=== PATIENT | female | born 1995 | race African-American/Black ===

== ENCOUNTER 2024-10-01 11:46 | Inpatient (IN) | payer OTHER, SELFPAY ==
[2024-10-01] VITALS (116 sets, daily range): BP systolic 64–133; BP diastolic 44–107; PULSE 32–158; RESP 18; TEMP 36.3–37.2; O2SAT 75–100; BMI 46.2
--- NOTE | ~2024-10-01 | US_ITS ---
EXAM EXAMINATION: US OB limited DATE: 10/01/2024 13:06 CDT INDICATION: No heart tones detected COMPARISON: None TECHNIQUE: Real-time transabdominal obstetric ultrasound. FINDINGS: The placenta is grossly enlarged and heterogeneous consistent with mixed blood products of different ages. No cardiac activity is identified on the submitted images. IMPRESSION: Grossly enlarged and heterogeneous placenta without cardiac activity on the submitted static or cine images. Reviewed, dictated and finalized at location A. IMPRESSION: Grossly enlarged and heterogeneous placenta without cardiac activity on t he submitted static or cine images.
--- OUTSIDE RECORDS SUMMARY | 2024-10-01 12:05 | XMS_ITS | Encounter Summary ---
Author Organization [facility] Address [address] [facility] [place] [address] Care Team Providers Care Vp Digital Marketing Name Role Phone Ethan Petty PA-C Primary Care Provider Reason for Visit * Reason Onset Date Comments MEDICATION REFILL 08/01/2022 Encounter Details Date Type Department Care Team (Late st Contact Info) Description 08/01/2022 Refill [facility] [address] [place], [place] [id number] Ethan Petty PA-C [address] [place] [id number] MEDICATION REFILL Social History Tobacco Use Types Packs/Day Years Used Date Smoking Tobacco: Never Smokeless Tobacco: Never Alcohol Use Standard Drinks/Week Comments Yes 0 (1 standard drink = 0.6 oz pur e alcohol) AUDIT-C Answer Date Recorded Q1: How often do you have a drink containing alc ohol? 2-3 times a week 08/17/2020 Q2: How many drinks containi ng alcohol do you have on a typical day when you are drinking? 1 or 2 08/17/2020 Q3: How often do you have si x or more drinks on one occasion? Never 08/17/2020 PHQ-2 Answer Date Recorded PHQ2 TOTAL SCORE 0 08/17/2020 Comments No Sex and Gender Information Value Date Recorded Sex Assigned at Not on file Legal Sex Female 5:39 AM [place] Gender Identity Not on file Sexual Orientation Not on file documented as of this encounter Functional Status * Is person deaf or have serious hearing difficulty? Answer Date of Assessment Author No 03/03/2019 8:22 AM Laura Stratton RN * Is person blind or have serious difficulty seeing? Answer Date of Assessment Author No 03/03/2019 8:22 AM Laura Stratton RN * Does person have serious difficulty walking/climbing stairs? Answer Date of Assessment Author No 03/03/2019 8:22 AM Laura Stratton RN * Does person have difficulty dressing/bathing? Answer Date of Assessment Author No 03/03/2019 8:22 AM Laura Stratton RN * Does person have difficulty doing errands alone? Answer Date of Assessment Author No 03/03/2019 8:22 AM Laura Stratton RN documented as of this encounter Mental Status * Does person have difficulty concentrating/remembering/making decisions? Answer Entry Date Author No 03/03/2019 8:22 AM Laura Stratton RN documented in this encounter Miscellaneous Notes * Telephone Encounter - Guera Oviedo MA - 08/05/2022 11:02 AM CDT Refill Request Dora Beauchamp RACHAEL: 03/18/2021 NOV due: none NOV scheduled: Visit date not found LRF: 07/30/2022 Qty Disp: 08/01/2022 # of refills: 30 Allergies: No Known Allergies Pended Medication Order: Requested Prescriptions Pending Prescriptions Disp Refills ??? acyclovir (Zovirax) 400 MG tablet 30 tablet 0 Sig: Take 1 (one) tablet by mouth 2 times daily for 14 days documented in this encounter Plan of Treatment Upcoming Encounters Date Type Department Care Team (Late st Contact Info) Description 10/05/2024 9:00 AM CDT Hospital Encounter [facility] [address] [place] [address] oDnny Mcadams MD [address] [facility] [address] [place] [address] 10/19/2024 10:30 AM CDT Appointment [facility] [address] [place] [address] 10/19/2024 11:15 AM CDT Appointment [facility] [address] [place] [address] 10/26/2024 10:30 AM CDT Appointment [facility] [address] [place] [address] 10/26/2024 11:15 AM CDT Appointment [facility] [address] [place] [address] 11/02/2024 10:30 AM CDT Appointment [facility] [address] [place] [address] 11/02/2024 11:15 AM CDT Appointment [facility] [address] [place] [address] 11/09/2024 9:00 AM CDT Appointment [facility] [address] [place] [address] 11/09/2024 9:45 AM CDT Appointment [facility] [address] [place] [address] 11/16/2024 9:00 AM CDT Appointment [facility] [address] [place] [address] 11/16/2024 9:45 AM CDT Appointment [facility] [address] [place] [address] documented as of this encounter Visit Diagnoses Diagnosis H/O cold sores Personal history of other infectious and parasitic disease Cervical insufficiency in , antepartum (HCC)- Primary Other congenital or acquired abnormality of cervix, antepartum condition or complication Previous delivery, antepartum condition or complication (HCC) Previous delivery, antepartum condition or complication Encounter for maternal care for suspected poor growth in [place] in second trimester ([facility]) growth restriction antepartum ([facility]) History of cerclage, currently (HCC) with other poor obstetric history 34 weeks gestation of (HCC) state, incidental documented in this encounter Care Teams Vp Digital Marketing Relationship Specialty Start Date End Date Ethan Petty PA-C [address] [phone] PCP - General 08/02/20 documented as of this encounter
--- OUTSIDE RECORDS SUMMARY | 2024-10-01 12:05 | XMS_ITS | Referral Summary ---
Author Organization [place] [id number] Address [address] [place] [address] Care Team Providers Care Double End Tenoner Setter Name Role Phone No, Physician Primary Care Provider [phone] Allergies No known active allergies Medications acyclovir (ZOVIRAX) 400 mg tablet Take 1 tablet (400 mg total) by mouth 2 (two) times a day Active ferrous sulfate 325 mg (65 mg of elemental iron) tablet Active [id number] 30 mg iron-1mg -200 mg capsule Take by mouth daily Active ELDERBERRY FRUIT ORAL Take by mouth Active progesterone (PROMETRIUM) 100 mg capsule Take 1 capsule (100 mg total) by mouth daily Active Active Problems Problem Noted Date Diagnosed Date Marijuana user 04/20/2024 Overview (04/25/2024): +UDS on NOB labs, cessation reviewed. 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 Never 04/27/2024 Q2: How many drinks containi ng alcohol do you have on a typical day when you are drinking? Patient does not drink Q3: How often do you have si x or more drinks on one occasion? Never 04/27/2024 Personal Safety Answer Date Recorded Have you ever been in or are you currently in a harmful physical or emotional relationship or is someone making you feel afraid or unsafe? Denies 04/27/2024 Comments Unknown Sex and Gender Information Value Date Recorded Sex Assigned at Not on file Legal Sex Female 11:34 AM [employer] [place] Gender Identity Not on file Sexual Orientation Not on file Last Filed Vital Signs Vital Sign Reading Time Taken Comments Blood Pressure 116/84 04/27/2024 2:15 PM [employer] Pulse 75 04/27/2024 2:15 PM [employer] Temperature 36.4 C (97.5 F) 04/27/2024 10:55 AM [employer] Respiratory Rate 16 04/27/2024 2:15 PM [employer] Oxygen Saturation 100% 04/27/2024 2:15 PM [employer] Inhaled Oxygen Concentration - - Weight 99.9 kg (220 lb 3.2 oz) 04/27/2024 7:18 A M [employer] Height 154.9 cm (5' 1) 04/27/2024 7:18 AM [employer] [place] Body Mass Index 41.61 04/27/2024 7:18 AM [employer] [place] Plan of Treatment Not on file Insurance [facility] Advance Directives For more information, please contact: [phone] * Full Code (Latest Code Status on File) Date Activated Date Inactivated Comments 04/27/2024 10:07 AM 04/27/2024 9:25 PM Care Teams Double End Tenoner Setter Relationship Specialty Start Date End Date No, Physician PCP - General 07/14/24
--- OUTSIDE RECORDS SUMMARY | 2024-10-01 12:05 | XMS_ITS | Data Portability ---
Author Organization [employer] , [facility] Address [address] [place] [address] Assessment No assessment recorded. Plan of Treatment Reminders Order Date Submit Date Provider Last Modified By Organization Details Last Modified Time Details Appointments OB RETURN EST 2024 09:30A M MEGHAN HAGER, DO Not available Not available Not available Lab urinalysi s, dipstick 2024 025 [email or web address] [facility], [address] [place] [address], [phone], 09/23/2024 14:06:42 urinalysi s, dipstick 2024 025 [email or web address] [facility], [address] [place] [address], [address], 09/08/2024 10:46:13 culture, urine 2024 025 [facility], [address] [place], [address], 09/10/2024 02:17:47 obstetric screen, serum or blood 2024 025 [facility] [place], [address] [place], [address], 08/19/2024 13:33:17 CBC w/ auto diff 2024 025 [facility], [address] [place], [address], 08/19/2024 12:26:57 glucose tolerance test, post-50G, 1-hour 2024 025 [facility] [place], [address] [place], [address], 08/19/2024 11:25:30 bacterial vaginosis + vaginitis panel, vaginal 2024 025 [facility] [place], [address] [place], [address], 08/08/2024 14:51:21 urinalysi s, dipstick [address], [address] [facility], [place], [address], 08/04/2024 16:15:52 culture, urine 2024 025 [facility], [address] [place], [address], 08/07/2024 02:10:55 culture, urine 2024 025 [facility], [address] [place], [address], 07/05/2024 22:09:49 Referral maternal & medicine referral - Please co-manage patient IUGR 4% normal cord dopplers at 27.0 wks gestation , cerclage in place for hx of cervical incompete nce 2024 025 [facility], [address] [facility], [address], [place], [address], 09/02/2024 04:09:38 Procedures None recorded. Surgeries None recorded. Imaging US, obstetric , follow-up 2024 025 NED Not available 08/04/2024 16:59:45 US, obstetric , 2nd or 3rd trimester 2024 025 NED Not available 07/04/2024 13:09:33 US, obstetric , transvagi nal 2024 025 [email or web address] Not available 07/07/2024 11:36:16 Medication Orders Macrobid 100 mg capsule 2024 025 [id number], [address], [place], [place], [id number], 09/25/2024 05:01:57 metronida zole 500 mg tablet 2024 025 [facility] #[id number], [address], [place], [place], [id number], 08/18/2024 05:00:47 Macrobid 100 mg capsule 2024 025 [facility] #44607, [address], [place], [place], [id number], 09/25/2024 05:01:57 Adult Low Dose Aspirin 81 mg tablet,de layed release 2024 025 [facility][id number], [address], [place], [place], [id number], 07/04/2024 16:45:47 Patient TargetsNo targets recorded. Patient Instructions Encounter Date Encounter Id Patient Instructions Last Modified By Organization Details Last Modified Time 08/18/2024 [id number] learning about screening for gestational diabetes [email or web address] Not available 08/18/2024 15:15:46 Reason for Referral Maternal & Medicine Re ferral for growth restriction Please co-manage patient IUGR 4% normal cord dopplers at 27.0 wks gestation, cerclage in place for hx of cervical incompetence Referring Physician: Isatu Bello, [employer], Encounter Date: 08/04/2024 Results Created Date Observation Date Name Description Value Unit Range Abnormal Flag Note LastModifiedBy Organization Detail LastModifiedTime 07/05/1907/05/2024 CULTU RE, URINE , ROUTI NE culture, urine, routine SEE NOTE CULTU RE, URINE , ROUTI NE Micro Numbe r: [id number] Test Statu s: Final Speci men Sourc e: Urine Speci men Quali ty: Adequ ate Resul t: No Growt h Not Available [facility] [address] [place], [address], 07/05/2024 22:09:49 07/06/19 25 07/06/2024 (50G) 1HR - GLUCO SE DACIA ANCE TEST, GESTA HOLLY L SCREE N glucose (50g) 1 hour 77 mg/dL <135 normal Not Available [facility] [place] [address] [place], [address], 07/06/2024 10:43:40 08/05/19 25 08/07/2024 CULTU RE, URINE , ROUTI NE culture, urine, routine SEE NOTE abnormal CULTU RE, URINE , ROUTI NE Micro Numbe r: [id number] Test Statu s: Final Speci men Sourc e: Urine Speci men Quali ty: Adequ ate Resul t: 10,00 0-49, 000 CFU/m L of Coagu lase negat jermaine staph yloco ccus, not S. sapro phyti cus May repre sent colon izers from exter nal and inter nal genit mary. No furth er testi ng (incl uding susce ptibi lity) will be perfo rmed. Great er than 100,0 00 CFU/m L of Enter ococc us speci es Enter ococc us sp. ----- ----- ----- - INT MATEUSZ AMPIC ILLIN S <=2 NITRO FURAN TOIN S <=16 VANCO MYCIN S 2 S = Susce ptibl e I = Inter media te R = Resis tant NS = Not susce ptibl e SDD = Susce ptibl e Dose Depen dent * = Not Teste d NR = Not Repor gina NN = See Thera py Comme nts Not Available [facility] [address] [place], [address], 08/07/2024 21:38:25 08/05/19 25 08/08/2024 VAGIN ITIS PLUS STD PANEL bacterial vaginosis BV POS negati ve abnormal Not Available [address], [address], 08/08/2024 14:51:21 08/05/19 25 08/08/2024 VAGIN ITIS PLUS STD PANEL shonda species C. spp neg negati ve normal Not Available [address], [address], 08/08/2024 14:51:21 08/05/19 25 08/08/2024 VAGIN ITIS PLUS STD PANEL shonda glabrata C. gla neg negati ve normal Not Available [address], [address], 08/08/2024 14:51:21 08/05/19 25 08/08/2024 VAGIN ITIS PLUS STD PANEL trichomonas vaginalis CV/TV TRICH neg negati ve normal Not Available [address], [address], 08/08/2024 14:51:21 08/05/19 25 08/08/2024 VAGIN ITIS PLUS STD PANEL chlamydia trachomatis CT neg negati ve normal This repor t is inten ded for us in clini aguila monit oring and manag ement [facility]. It is not inten ded for use in medic al-le gal appli catio n. Not Available [address], [address], 08/08/2024 14:51:21 08/05/19 25 08/08/2024 VAGIN ITIS PLUS STD PANEL neisseria gonorrhoeae GC neg negati ve normal This repor t is inten ded for us in clini aguila monit oring and manag ement of [facility] nts. It is not inten ded for use in medic al-le gal appli catio n. Not Available [address], [address], 08/08/2024 14:51:21 08/05/19 25 08/04/2024 urina lysis , dipst ick Leukocytes Large Not Available [address], [place], [address], 08/04/2024 15:44:52 08/05/19 25 08/04/2024 urina lysis , dipst ick Nitrite negati ve Not Available [address], [place], [address], 08/04/2024 15:44:52 08/05/19 25 08/04/2024 urina lysis , dipst ick Urobilinogen 1 Not Available [address], [place], [address], 08/04/2024 15:44:52 08/05/19 25 08/04/2024 urina lysis , dipst ick Protein Trace Not Available [address], [place], [address], 08/04/2024 15:44:52 08/05/19 25 08/04/2024 urina lysis , dipst ick pH 6.0 Not Available [address], [place], [address], 08/04/2024 15:44:52 08/05/19 25 08/04/2024 urina lysis , dipst ick Blood Modera te Not Available [address], [place], [address], 08/04/2024 15:44:52 08/05/19 25 08/04/2024 urina lysis , dipst ick Specific [place] 1.010 Not Available [address], [place], [address], 08/04/2024 15:44:52 08/05/19 25 08/04/2024 urina lysis , dipst ick Ketone Trace Not Available [address], [place], [address], 08/04/2024 15:44:52 08/05/19 25 08/04/2024 urina lysis , dipst ick Bilirubin Negati ve Not Available [address], [place], [address], 08/04/2024 15:44:52 08/05/19 25 08/04/2024 urina lysis , dipst ick Glucose Negati ve Not Available [address], [place], [address], 08/04/2024 15:44:52 08/05/19 25 08/04/2024 urina lysis , dipst ick Appearance Cloudy Not Available [address], [place], [address], 08/04/2024 15:44:52 08/05/19 25 08/04/2024 urina lysis , dipst ick Color Yellow Not Available [address], [address], 08/04/2024 15:44:52 08/19/19 25 08/19/2024 (50G) 1HR - GLUCO SE DACIA ANCE TEST, GESTA HOLLY L SCREE N glucose (50g) 1 hour 109 mg/dL <135 normal Not Available [facility] [address] [place] [address], [address], 08/19/2024 11:25:30 08/19/19 25 08/19/2024 CBC (INCL UDES DIFF/ PLT) WBC 8.7 thous and/u L 4.0 - 9.8 normal Not Available [facility] [address], [place], [address], 08/19/2024 12:26:56 08/19/1908/19/2024 CBC (INCL UDES DIFF/ PLT) RBC 3.6 magda on/uL 3.9 - 4.9 low Not Available [address], [address], 08/19/2024 12:26:56 08/19/19 25 08/19/2024 CBC (INCL UDES DIFF/ PLT) hemoglobin 11.4 g/dL 11.8 - 14.8 low Not Available [address], [address], 08/19/2024 12:26:56 08/19/19 25 08/19/2024 CBC (INCL UDES DIFF/ PLT) hematocrit 33.7 % 35.5 - 44.0 low Not Available [address], [address], 08/19/2024 12:26:56 08/19/19 25 08/19/2024 CBC (INCL UDES DIFF/ PLT) MCV 94.4 fL 82.0 - 99.0 normal Not Available [address], [address], 08/19/2024 12:26:56 08/19/19 25 08/19/2024 CBC (INCL UDES DIFF/ PLT) MCH 31.9 pg 27.2 - 32.6 normal Not Available [address], [address], 08/19/2024 12:26:56 08/19/19 25 08/19/2024 CBC (INCL UDES DIFF/ PLT) MCHC 33.8 g/dL 31.5 - 35.5 normal Not Available [address], [address], 08/19/2024 12:26:56 08/19/19 25 08/19/2024 CBC (INCL UDES DIFF/ PLT) RDW-CV 12.0 % 11.5 - 14.5 normal Not Available [address], [address], 08/19/2024 12:26:56 08/19/1908/19/2024 CBC (INCL UDES DIFF/ PLT) platelet 212 thous and/u L 140 - 350 normal Not Available [address], [address], 08/19/2024 12:26:56 08/19/19 25 08/19/2024 CBC (INCL UDES DIFF/ PLT) MPV 10.6 fL 9.3 - 12.4 normal Not Available [address], [address], 08/19/2024 12:26:56 08/19/19 25 08/19/2024 CBC (INCL UDES DIFF/ PLT) absolute neutrophil 5.87 thous and/u L 1.90 - 7.00 normal Not Available [address], [address], 08/19/2024 12:26:56 08/19/1908/19/2024 CBC (INCL UDES DIFF/ PLT) absolute lymphocyte 1.99 thous and/u L 0.70 - 4.50 normal Not Available [address], [address], 08/19/2024 12:26:56 08/19/1908/19/2024 CBC (INCL UDES DIFF/ PLT) absolute monocyte 0.57 thous and/u L 0.10 - 1.30 normal Not Available [address], [address], 08/19/2024 12:26:56 08/19/1908/19/2024 CBC (INCL UDES DIFF/ PLT) absolute eosinophil 0.16 thous and/u L <0.70 normal Not Available [address], [address], 08/19/2024 12:26:56 08/19/19 25 08/19/2024 CBC (INCL UDES DIFF/ PLT) absolute basophil 0.05 thous and/u L <0.20 normal Not Available [address], [address], 08/19/2024 12:26:56 08/19/19 25 08/19/2024 CBC (INCL UDES DIFF/ PLT) absolute immature granulocyte 0.02 thous and/u L <0.03 normal Not Available [address], [address], 08/19/2024 12:26:56 08/19/19 25 08/19/2024 OB 28W (SYPH HIV 1/2 Ag/Ab Non-Re active non-re active normal Not Available [address], [address], 08/19/2024 13:33:17 08/19/19 25 08/19/2024 OB 28W (SYPH syphilis Ab Non-Re active non-re active normal Not Available [address], [address], 08/19/2024 13:33:17 09/09/19 25 09/10/2024 CULTU RE, URINE , ROUTI NE culture, urine, routine SEE NOTE CULTU RE, URINE , ROUTI NE Micro Numbe r: [id number] Test Statu s: Final Speci men Sourc e: Urine Speci men Quali ty: Adequ ate Resul t: Mixed genit al corrie isola gina. These super ficia l bacte óscar are not indic ative of a urina ry tract infec tion. No furth er organ ism ident ifica tion is warra nted on this speci men. If clini geraldine indic ated, recol lect clean -catc h, mid-s tream urine and trans gio immed iatel y to Urine Cultu re Trans port Tube. Not Available [facility] [address] [place], [address], 09/10/2024 02:17:47 09/09/19 25 09/08/2024 urina lysis , dipst ick Leukocytes Modera te Not Available [address], [place], [address], 09/08/2024 10:01:12 09/09/19 25 09/08/2024 urina lysis , dipst ick Nitrite negati ve Not Available [address], [place], [address], 09/08/2024 10:01:12 09/09/1909/08/2024 urina lysis , dipst ick Urobilinogen .2 Not Available [address], [place], [address], 09/08/2024 10:01:12 09/09/19 25 09/08/2024 urina lysis , dipst ick Protein Trace Not Available [address], [place], [address], 09/08/2024 10:01:12 09/09/19 25 09/08/2024 urina lysis , dipst ick pH 8.0 Not Available [address], [place], [address], 09/08/2024 10:01:12 09/09/19 25 09/08/2024 urina lysis , dipst ick Blood Large Not Available [address], [place], [address], 09/08/2024 10:01:12 09/09/19 25 09/08/2024 urina lysis , dipst ick Specific [place] 1.005 Not Available [address], [place], [address], 09/08/2024 10:01:12 09/09/19 25 09/08/2024 urina lysis , dipst ick Ketone Negati ve Not Available [address], [place], [address], 09/08/2024 10:01:12 09/09/1909/08/2024 urina lysis , dipst ick Bilirubin Negati ve Not Available [address], [place], [address], 09/08/2024 10:01:09/09/1909/08/2024 urina lysis , dipst ick Glucose Negati ve Not Available [address], [place], [address], 09/08/2024 10:01:12 09/09/19 25 09/08/2024 urina lysis , dipst ick Appearance Slight ly Cloudy Not Available [address], [place], [address], 09/08/2024 10:01:12 09/09/19 25 09/08/2024 urina lysis , dipst ick Color Yellow Not Available [address], [place], [address], 09/08/2024 10:01:12 09/24/19 25 09/23/2024 urina lysis , dipst ick Leukocytes Negati ve Not Available [address], [place], [address], 09/23/2024 13:35:38 09/24/19 25 09/23/2024 urina lysis , dipst ick Nitrite negati ve Not Available [address], [place], [address], 09/23/2024 13:35:38 09/24/19 25 09/23/2024 urina lysis , dipst ick Urobilinogen .2 Not Available [address], [place], [address], 09/23/2024 13:35:38 09/24/19 25 09/23/2024 urina lysis , dipst ick Protein Negati ve Not Available [address], [place], [address], 09/23/2024 13:35:38 09/24/19 25 09/23/2024 urina lysis , dipst ick pH 5.0 Not Available [address], [place], [address], 09/23/2024 13:35:38 09/24/19 25 09/23/2024 urina lysis , dipst ick Blood Negati ve Not Available [address], [place], [address], 09/23/2024 13:35:38 09/24/19 25 09/23/2024 urina lysis , dipst ick Specific [place] 1.000 Not Available [address], [place], [address], 09/23/2024 13:35:38 09/24/19 25 09/23/2024 urina lysis , dipst ick Ketone Negati ve Not Available [address], [place], [address], 09/23/2024 13:35:38 09/24/19 25 09/23/2024 urina lysis , dipst ick Bilirubin Negati ve Not Available [address], [place], [address], 09/23/2024 13:35:38 09/24/19 25 09/23/2024 urina lysis , dipst ick Glucose Negati ve Not Available [address], [place], [address], 09/23/2024 13:35:38 09/24/19 25 09/23/2024 urina lysis , dipst ick Appearance Clear Not Available [address], [place], [address], 09/23/2024 13:35:38 09/24/19 25 09/23/2024 urina lysis , dipst ick Color Pale Yellow Not Available [address], [place], [address], 09/23/2024 13:35:38 06/10/19 25 06/09/2024 US, diana aldrich, trans vagin al No observ ation record ed. [email or web address] [facility] [address], [place], [address], 06/09/2024 18:18:29 07/05/19 25 07/04/2024 US, diana aldrich, 2nd or 3rd trime ster No observ ation record ed. [email or web address] [facility] [address], [place], [address], 07/04/2024 16:56:03 08/05/19 25 08/04/2024 US, diana aldrich, follo w-up No observ ation record ed. [email or web address] [facility] [address], [place], [address], 08/05/2024 21:52:42 08/13/19 25 08/10/2024 US, obste tric, trans vagin al No observ ation record ed. [email or web address] [facility] [address] [place], [address], 09/03/2024 19:24:26 08/19/19 25 08/18/2024 US, obste tric, limit ed No observ ation record ed. [email or web address] [facility] [address], [place], [address], 08/29/2024 16:30:26 09/09/19 25 09/07/2024 US, obste tric, trans vagin al No observ ation record ed. NED [facility] [place] [address] [facility], [place], [address], 09/08/2024 11:24:29 09/09/19 25 09/08/2024 US, obste tric, follo w-up No observ ation record ed. [email or web address] [facility] [address], [place], [address], 09/09/2024 16:21:47 Result Notes None recorded. Problems Name Problem SNOMED Code Status Onset Date Resolution Date Notes Provider Name and Address Organization Details Recorded Time 82567007 Active 2024 Danyelle Veras null, [employer] [facility] 13:32:11 Maternal obesity complicat ing , childbirt h and the puerperiu m, antepartu m 68012124733 7 Active 2024 Alberta Pollack MD [address] [facility], [place], [address] , [employer] [facility] 5 14:05:50 Cervical incompete nce 95843397 Active 2024 16 week loss G1. U/S: 04/14 7.6 cm, 05/12 4.48 cm, 06/09 5.31. S/P Cerclage placement . --> Update 07/04/24: C.L. U/S Q 2 weeks recommend ed through 28 wks. Discussed PTL precautio ns and when to notify HCP/go to ER. Pt advised continuin g progester one through 36 wks if toleratin g well. Discussed PTL precautio ns and when to notify HCP/go to ER. JUDY Bustillo [facility] [place], [address] , [facility] [employer] [facility] 5 16:52:02 Past history of section 122767120 Active 2024 H/O PTD. Primary C/S in 02/2019 for NRFHT's/M econium per pt. Plan to discuss delivery POC with MD at future OBV. JUDY Bustillo [address] [place] [address], [address] , [facility] [employer] IV 5 16:50:31 Marijuana user 557535927 Active 2024 +UDS on NOB labs, cessation reviewed. TRE HIGGINS [address] [place] [address], [address] , [facility] [employer] IV 5 14:09:44 High risk 09094505 Active 2024 Hx: [id number] 3L1, Delivery Methods: C/S X 1. NOB labs: O+/RI/NRx 4. Last Pap: None on file; plan postpartu m collectio n. GTT: pending; see Pt Case from 07/04/24. GBS: ____. Aneuploid y screening : Myriad NIPT WNL. MSAFP not drawn. Anatomy Scan: Complete with [facility] on 07/04/24. JUDY Bustillo [facility] [place], [address] , [facility] [employer] IV 5 16:52:32 Uterine size for dates discrepan cy 363304081 Active 2024 noted on 07/04/24. 12.5%. NIPT WNL. Pt educated on FKC and when to notify HCP/go to ER. Plan serial growth/AF I U/S every 4 wks. JUDY Bustillo [address] [facility], [place], [address] , [employer] [facility] 5 16:47:48 Morbid obesity 845262452 Active 2024 BMI 40.4 on intake. HgA1C 5.0. GTT: pending; see Pt Case from 07/04/24. Recommend ed LD ASA daily. Plan serial growth/AF I U/S every 4 wks. JUDY Bustillo [address] [facility], [place], [address] , [facility] [employer] IV 5 16:48:59 Problem Notes None recorded. Procedures Surgical History Date Name Laterality Status Provider Name and Address Organization Details Recorded Time Date of Last Pap Smear completed [employer] [facility] 04/08/2024 11:48:35 C Section completed [employer] 04/08/2024 11:48:42 Imaging Results None recorded. Procedure Notes None recorded. Medical Equipment None Reported. Allergies No known drug allergies Medications Name Sig Start Date Stop Date Status Note LastModified by Organization Details LastModified Time metronidazol e 500 mg tablet Take 1 tablet twice a day by oral route for 7 days. 08/18 completed Not Available Not Available Not Available aspirin 81 mg tablet,delay ed release TAKE 1 TABLET BY MOUTH EVERY DAY active Not Available Not Available No t Available Macrobid 100 mg capsule Take 1 capsule every 12 hours by oral route for 10 days. 09/25 completed Not Available Not Available Not Available progesterone micronized 200 mg capsule TAKE 1 CAPSULE BY MOUTH EVERY DAY AT BEDTIME active Not Available Not Available No t Available Vitamin 27 mg iron-0.8 mg tablet TAKE 1 TABLET BY MOUTH ONCE DAILY active Not Available Not Available No t Available aspirin 81 mg capsule Take 1 capsule every day by oral route. 04/14 completed Not Available Not Available Not Available Vitals Date Recorded Body height Body mass index (BMI) Body weight Systolic And Diastolic Provider Name and Address Organization Details Last Updated DateTime 07/04/2024 157.48 cm 43.1 kg/m2 821720.64 g 120/68 mm[Hg] Shira Mendoza [facility] 07/04/2024 11:46:56 Date Recorded Body weight Provider Name an d Address Organization Details Last Updated DateTime 08/04/2024 451911.634548 g ISATU BELLO LIZ [address] [place], [address], [facility] 08/04/2024 16:00:38 Date Recorded Body mass index (BMI) Body height Systolic And Diastolic Provider Name and Address Organization Details Last Updated DateTime 08/04/2024 47.3 kg/m2 157.48 cm 106/62 mm[Hg] Toshia [facility] 08/04/2024 15:43:49 Date Recorded Body height Body mass index (BMI) Body weight Systolic And Diastolic Provider Name and Address Organization Details Last Updated DateTime 08/18/2024 157.48 cm 44.3 kg/m2 573178.07 g 122/78 mm[Hg] Jenyrekha Gusmanman [facility] 08/18/2024 15:03:37 Date Recorded Body weight Body mass index (BMI) Body height Systolic And Diastolic Provider Name and Address Organization Details Last Updated DateTime 09/08/2024 823936.07 2014 g 44.3 kg/m2 157.48 cm 118/74 mm[Hg] Tsohia [facility] 09/08/2024 10:03:27 Date Recorded Body height Provider Name an d Address Organization Details Last Updated DateTime 09/23/2024 157.48 cm Shira Mendoza [facility] [employer] IV 09/23/2024 13:22:46 Social History Question Answer Notes LastModified by Organizat ion Details LastModified Time Tobacco Smoking Status Never Smoker Vidhi mijares, [facility] 04/08/2024 11:48:39 If You Are , What Was Your Level Of Alcohol Consumption Prior To ? Occasional Information not available 04/08/2024 Are You Blind Or Do You Have Difficulty Seeing? No Information not available 04/08/2024 Are You Deaf Or Do You Have Serious Difficulty Hearing? No Information not available 04/08/2024 What Type Of Diet Are You Following? REGULAR Information not available 04/08/2024 How Many Children Do You Have? 1 Information not available 04/08/2024 What Is Your Relationship Status? Single Information not available 04/08/2024 Are You Sexually Active? No Information not available 04/08/2024 Sex: Unknown Functional Status Question Answer Note LastModified by Organizat ion Details LastModified Time Do you use any illicit or recreational drugs? No Information not available 04/08/2024 What is your level of alcohol consumption? None Information not available 04/08/2024 Are you currently employed? No Information not available 04/08/2024 What is your exercise level? None Information not available 04/08/2024 Mental Status None recorded. Family History Relationship Description Onset Age of this Age Resolved Age Notes LastModified by Organization Details LastModified Time Father No current problems or disability Not available 04/08 12:20:18 Mother No current problems or disability Not available 04/08 12:20:18 Medical History Condition Response Other Cancer N High Blood Pressure N Colon Cancer N Cytomegalovirus N Hyperthyroidism N Blood Transfusion N MRSA N Herpes (HSV) N Breast Cancer N Lung Cancer N Hypothyroidism N Depression N Incontinence N Panic Attacks N Neurological Disorder N Deep Vein Thrombosis N Anxiety Disorder N Autoimmune disease N Arthritis N Shingles N Tuberculosis/Positive PPD N Infertility N Polycystic Ovarian Syndrome N Cervical Cancer N Chlamydia N Hematuria N Stroke N Varicosities N Seasonal allergies N Crohn's Disease N Alzheimer's/Dementia N COPD/Emphysema N Endometriosis N HPV/Genital Warts N IBS (Irritable Bowel Syndrome) N History of Abnormal Pap N High Cholesterol N Liver Disease N Kidney Infection N Fibromyalgia N Ulcer N Kidney Disease N HIV N Gallbladder disease N Von Willebrand disease N Sickle Cell Disease/Trait N ADD/ADHD N Eating Disorder N Diabetes Mellitus (non-insulin dependent ) N Anemia N Ovarian Problems N Multiple Sclerosis N Gonorrhea N Frequent Urinary Tract infections N Osteopenia N Headaches/migraines N GERD (reflux) N Ovarian Cancer N Diabetes (insulin dependent) N Seizures/Epilepsy N Breast Problems N Fibroids N Asthma N Heart Attack N Endometrial Cancer N Lupus N Rubella N Blood Clotting Disorder N Bipolar Disorder N Diabetes Mellitus (during ) N Ulcerative Colitis N Hepatitis N Heart Disease N Pulmonary Embolism N RPR N Chicken Pox N Osteoporosis N Gynecological History Statement/Question Response Date of Last Colonoscopy Flow Moderate Frequency of Cycle (Q days) 28 Date of LMP 01/28/2024 Most Recent Bone Density Date of Last Pap Smear 10/04/2020 Duration of Flow (days) 5 Most Recent Mammogram Current Control Method Age at Menarche 14 Obstetrics History GPAL:G 5 P 1 0 3 1 Type Value Full Term 1 Induced 2 Spontaneous 1 Living 1 Total 5 Past Encounters Encounter ID Performer Location Encounter Start Date Encounter Closed Date Diagnosis/Indication Diagnosis SNOMED-CT Code Diagnosis ICD10 Code Diagnosis Note [id number] JUDY RAUSCH [facility] h [address] [place] [address] 04/08/2024 11:32:21 04/08/2024 14:52:43 test positive [id number] Z32.01 Pt presents today for a confirmati on of visit. has not been previously confirmed at another healthcare facility. Pt voiced that she is happy about this . TVUS today showed:IUP with Cardiac Activity. SHAYAN based on this US. SHAYAN: 11/10/24Ges tational Age: 9w 1dFHT:161 History of Cervical incompeten ce with cerclage placement with last pregnancyP revious p3Dcszw trimester teaching provided.- --Foods and activities to avoid---We ight gain recommenda tions based on BMI---Safe meds---Tariq entation to practice-- -Delivery locations- --PRECIOUS visit progressio n---Prenat al vitamins daily---To xoplasmosi s precaution s reviewed-- -[facility] Guide; What to expect on your maternity journey-- -S/S of SAB reviewed and when to seek care Patient was counseled on purpose, process and potential outcomes of NIPT and carrier screening. We discussed benefits, limitation s and accuracy of screenings . Alternativ es including, no testing, were reviewed. Patient was given the opportunit y to ask questions, which were addressed thoroughly . After confirming understand ing, patient provided verbal consent for NIPT and carrier screening. Plan for NIPT at next visit. --BMI: 40.4 RTC 4 weeks for 1st OB, Labs, and Physical. History of gynecological disorder [id number] Z87.42 Cerclage with last Past pregn warren history of section 131604980 Z98.891 Emergency delivery due to intoleranc e to labor, meconium stained amniotic fluid At increas ed risk of disease 048536206 Z91.89 -- Low dose Aspirin : 81 mg/day prophylaxi s is recommende d in women at high risk of preeclamps ia. Recommende d to be initiated at 12 weeks gestation. Risk Factors:Ob esity (BMI >30), Mother or sister with preeclamps ia, Older than 35, Race [id number] Alberta Pollack MD [facility] [address] [place] [address] 04/14/2024 11:43:57 04/14/2024 14:26:21 History of gynecological disorder 429006928 Z87.42 Cerclage with last screening 2437 27590 Z36.89 Needs pap next visit High risk 4720 0007 O26.21 Gestation period, 10 weeks 20535153 Z3A.10 [id number] Alberta Pollack MD [facility] [address] [place] [address] 04/21/2024 13:29:39 04/21/2024 16:37:08 Gestation period, 11 weeks 73016914 Z3A.11 High risk 4720 0007 O09.41 Pt is here for a PRECIOUS appointmen t. She is taking vitamins. She has no complaints or questions. Has not felt movement yet. Denies vaginal bleeding, abdominal cramps, N/V, contractio ns, or LOF. Denies headache, vision changes, swelling of hands or face, and epigastric pain. Discussed PTL and precaution s given. There are no identifiab le risk factors for pre-term labor. The patient was initially evaluated by TRE Higgins, who completed the history examinatio n, and preliminar y assessment . I, Alberta Pollack MD, entered the room to review and discuss the care plan with the patient. After reviewing the specific findings and documentat ion provided by Janette, I confirmed the diagnosis and care plan, addressing any additional concerns or questions raised by the patient. The final plan of care was developed camilo horowitz and has been documented accordingl y. History of gynecological disorder 266845266 Z87.42 Plan for cerclage once NIPT comes back [id number] Alberta Pollack MD [address] [address] 05/12/2024 13:19:12 05/12/2024 14:52:39 High risk 15371296 O09.41 The patient was initially evaluated by TRE Higgins, who completed the history examinatio n, and preliminar y assessment . Alberta Bravo MD, entered the room to review and discuss the care plan with the patient. After reviewing the specific findings and documentat ion provided by Janette, I confirmed the diagnosis and care plan, addressing any additional concerns or questions raised by the patient. The final plan of care was developed camilo horowitz and has been documented accordingl y. History of gynecological disorder 414540622 Z87.42 S/P cerclage 04/27/2024 Gestation period, 13 weeks 47266687 Z3A.13 [id number] Alberta Pollack MD [address] [address] 06/09/2024 10:58:37 06/09/2024 11:46:37 High risk 60931662 O09.893 The patient was initially evaluated by TRE Higgins, who completed the history examinatio n, and preliminar y assessment . Alberta Bravo MD, entered the room to review and discuss the care plan with the patient. After reviewing the specific findings and documentat ion provided by Janette, I confirmed the diagnosis and care plan, addressing any additional concerns or questions raised by the patient. The final plan of care was developed camilo horowitz and has been documented accordingl y. History of gynecological disorder 509268414 Z87.42 S/P cerclage 04/27/2024 Gestation period, 18 weeks 81963227 Z3A.18 [id number] JUDY Bustillo [facility] [address] [place] [address] 07/04/2024 11:33:22 07/05/2024 13:49:30 screening for malformation 727421005 Z36.3 Urinary tr act infection in 427828267 O23.42 High risk 4720 0007 O09.92 Gestation period, 22 weeks 88628884 Z3A.22 Obesity ca used by energy imbalance 753232385 E66.01 Cervical incompetence 17 628780 O34.32 Past pregn warren history of section 499968647 O34.628 [id number] JUDY RAUSCH [facility] [address] [place] [address] 08/04/2024 14:19:44 08/08/2024 13:38:23 Gestation period, 27 weeks 12603493 Z3A.27 grow th restriction 53165247 O36.5990 Abnormal urine odor 8769 003 R82.90 Vaginal discharge 551571 006 N89.8 High risk 4720 0007 O09.92 Discussed PTL and precaution s given. Call our office or go to labor and delivery for the following: If you are less than 37 weeks and have move than 4 contractio ns an hour.Blurr ing of vision or spots before your eyes and/or HARuptured membranes or leakage of vaginal fluid -may be a steady trickle or large gush - may be clear, yellow, pink or green Vaginal bleeding-- bright red bleeding and/or clots needs medical care immediatel y.Any temperatur e above 100 degrees.An y burning or painful urination. Increased swelling in your face, hands, or feet.Stoma ch pains, cramps, nausea,or diarrhea. RTC in 2 weeks. [id number] Alberta Pollack MD [facility] [address] [place] [address] 08/18/2024 14:28:48 08/18/2024 15:39:34 High risk 75772212 O09.893 screening 2437 [address] Z36.89 Gestation period, 29 weeks 87620866 Z3A.29 Poor growth affecting management 442322817 O36.5921 [id number] JUDY RAUSCH [facility] [address] [place] [address] 09/08/2024 09:25:48 09/08/2024 12:09:02 High risk 60027031 O09.893 -No ob concerns-S aw MFM yesterday EFW 14%, AC 10%, seeing MFM again for repeat growth in 4 wks-4D US today. Good breathing, tone, and movement today on US, SERVANDO 19.2cm.-Nancy scussed weekly testing at 34 weeks-PLTC S 02/2019 for NRFHT's/Me conium. Pt would like to discuss RLTCS vs . Plan to see MD at next visit to discuss.-P TL/PROM/FM /PREE precaution s given-RTC in 2 weeks Gestation period, 31 weeks 66809215 Z3A.31 Poor growth affecting management 738744496 O36.5990 US at MFM On 09/07 EFW 1,475 g 14%, AC 10%, seeing MFM again for repeat growth in 4 wks Scalding p ain on urination 85119626 R30.0 Completed MacrobidSt ill having dysuria, no fever, chills, or CVA tenderness on examPos Leukocytes , Protein, Blood on UA dipMacrobi d Rx sent, along with urine cultureDis cussed if not sensitive to macrobid will change abx, plan to start daily abx after finishing Macrobid [id number] MEGHAN HAGER, DO [facility] h [address] [place] [address] 09/23/2024 12:43:07 09/23/2024 14:46:44 Gestation period, 33 weeks 69576441 Z3A.33 Normal 8574545 2 Z34.83 Dysuria 67501944 R30.0 Past pregn warren history of section 175368447 Z98.891 Patient has a history of section (x1). was due to NRFHT. She has no contraindi cations for TOLAC. Overall success of TOLAC for a patient is 60-80%. Based on patient's history; due to NRFHT, and cervical incompeten ce increases her success and no prior , maternal obesity decreases her success.Ri sks and benefits of TOLAC vs RLTCS were discussed. Discussed that has the lowest morbidity and mortality then RLTCS then RLTCS in the setting of TOLAC. Informed patient that the biggest risk of TOLAC is uterine rupture and if she were to go into labor on her risk would be < 1% and if she required augmentati on with Pitocin risk would be <1.5% We are unable to use any cervical ripening agents as we are unable to control her contractio ns increasing her risk of uterine rupture. After discussion patient would like to proceed with TOLAC. If not delivered by 39-40weeks , will proceed with RLTCS. Health Concerns Section Related Observation LastModified by Organization Detai ls LastModified Time None Recorded Concern Status LastModified by Organization Details LastModified Time None Recorded Advance Directives Directive None Recorded Payers Insurance Date Sequence Insurance Name Policy Number Policy Rios Covered Member ID Rios Member ID Guarantor Name 04/08/2024 1 [place] Dora Nito [id number] [facility] 09/26/2024 1 [facility] ON OR AFTER 09/27/20 (MEDICAID REPLACEMENT - HMO) Dora Beauchamp [id number] [facility] 04/07/2024 1 [facility] ON OR AFTER 09/27/20 (MEDICAID REPLACEMENT - HMO) Dora Nito [id number] [facility] Notes Date Note Type Note Provider Name and Address Organization Details Recorded Time 07/04/2024 text/html Pt presents for OBV today. Pt is a [id number], at 22 4/7 weeks gestation.The is complicated by: H/O incompetent cervix, H/O C/S, H/O PTD, H/O Cervical Incompetence, H/O MJ use. Pt denies any cramping or vaginal bleeding. Pt endorses felt movement, but denies regular contractions, leaking of amniotic fluid, or vaginal bleeding. Pt's last OBV was: 06/09/2024. Pt has no other concerns. Alberta Pollack MD [address] [facility], [place], [address], [facility] 07/10/2024 08:24:37 08/04/2024 text/html [facility] OB Return VisitReported bypatient. symptoms: movement normal; no movement (consistent with gestational age); normal vaginal discharge/no ROM; no bleeding; pelvic pressure; no contractions/mild cramping only Gastrointestinal:no gastrointestinal symptoms Cardiovascular:no cardiovascular symptoms Musculoskeletal:no joint pain Neurologic:no headache; no visual changes Breast:plans to breast feed Social/psychiatric issues:no reported concerns with support system; no anxiety; no symptoms of depression Patient is here today for a routine OB visit. She is currently at 27 weeks gestation. vitamins: yes She has felt movement.She denies any complaints of the presence of vaginal bleed, leaking fluid, abdominal cramps, nausea, vomiting, headache or visual disturbances JUDY RAUSCH [address] [place], [address], [employer] [facility] 08/05/2024 22:04:30 08/18/2024 text/html Dora 28 y/o here for routine OB visit, she is 28/0 weeks, denies any vaginal spotting, bleeding, fluid leakage or cramping movement noted, taking vitamins, getting labs today U/S done Alberta Pollack MD [facility] [place], [address], [employer] [facility] 08/18/2024 15:16:17 09/08/2024 text/html Dora is a here today for a routine OB visit. She is currently at 31 weeks gestation. vitamins: yes She has felt movement. She denies any complaints of the presence of vaginal bleed, leaking fluid, abdominal cramps, nausea, vomiting, headache or visual disturbances. JUDY RAUSCH [address] [place], [address], [employer] [facility] 09/08/2024 10:57:28 09/23/2024 text/html Patient is here today for a routine OB visit. She is currently at 33 weeks gestation. vitamins: yes She has felt movement.She denies any complaints of the presence of vaginal bleed, leaking fluid, abdominal cramps, nausea, vomiting, headache or visual disturbances. Pt has no concerns.She wants to be checked to see if she can UTI or if the UTI is gone. MEGHAN HAGER, DO [address] [facility], [place], [address], [facility] 09/23/2024 14:06:56 OBGyn Episode Ob Episode Information Episode Created Date Number of Fetuses Patient Bloodtype Patient rh Status Prepregnancy Weight lbs Domestic Partner Domestic Partner Phone Father Name Ensemble Member Status 04/08/19 1 CLOSED Fetus Data First Name Last Name Admitted to NICU Weight (g) Sex Living Outcome Pediatric Complications Fetus ID Race Codes Race Delivery Type , Spontane ous [id number] Shayan Calculation Initial Shayan Date Initial Exam Date Initial Exam Provider Initial Ultrasound Date Last Menstrual Period Date Ultra Sound Weeks Gestation 0 Eighteen To Twenty Week Shayan Update Ultra Sound Date Fundal Height At Umbil Quickening Date Ultra Sound Latest Weeks Gestation Final Shayan Confirmed By Final Shayan Confirmed Date Final Shayan Date Ultra Sound Latest Days Gestation 0 0 Menstrual History Last Menstrual Date Menses Monthly On Bcp Conception Prior Menses Frequency Hcg Plus Date Menarche Onset Age Delivery Information Delivery Date Delivery Type Labor Anesthesia Weeks Gestation Incision Type Labor Labor Length Hrs Delivered By Post Complications Tubal Sterilization Discharge Date Comments 7 Discharge Information Feeding Method Contraceptive Method Maternal HG B and HCT Levels Ob Episode Information Episode Created Date Number of Fetuses Patient Bloodtype Patient rh Status Prepregnancy Weight lbs Domestic Partner Domestic Partner Phone Father Name Ensemble Member Status 04/08/19 1 CLOSED Fetus Data First Name Last Name Admitted to NICU Weight (g) Sex Living Outcome Pediatric Complications Fetus ID Race Codes Race Delivery Type , Induced [id number] Shayan Calculation Initial Shayan Date Initial Exam Date Initial Exam Provider Initial Ultrasound Date Last Menstrual Period Date Ultra Sound Weeks Gestation 0 Eighteen To Twenty Week Shayan Update Ultra Sound Date Fundal Height At Umbil Quickening Date Ultra Sound Latest Weeks Gestation Final Shayan Confirmed By Final Shayan Confirmed Date Final Shayan Date Ultra Sound Latest Days Gestation 0 0 Menstrual History Last Menstrual Date Menses Monthly On Bcp Conception Prior Menses Frequency Hcg Plus Date Menarche Onset Age Delivery Information Delivery Date Delivery Type Labor Anesthesia Weeks Gestation Incision Type Labor Labor Length Hrs Delivered By Post Complications Tubal Sterilization Discharge Date Comments 3 Discharge Information Feeding Method Contraceptive Method Maternal HG B and HCT Levels Ob Episode Information Episode Created Date Number of Fetuses Patient Bloodtype Patient rh Status Prepregnancy Weight lbs Domestic Partner Domestic Partner Phone Father Name Ensemble Member Status 04/14/19 25 1 O Positive OPEN Fetus Data First Name Last Name Admitted to NICU Weight (g) Sex Living Outcome Pediatric Complications Fetus ID Race Codes Race Delivery Type [id number] Problems Problem Notes Pap Problem Name Start Date End Date Resolution Snomed Code Not e Past history of section 04/14/2024 [id number] H/O PTD. Primar y C/S in 02/2019 for NRFHT's/Meconium per pt. Plan to discuss delivery POC with MD at future OBV. Cervical incompetence 04/14/2024 6804147 5 16 week loss G1. U/S: 04/14 7.6 cm, 05/12 4.48 cm, 06/09 5.31. S/P Cerclage placement. --> Update 07/04/24: C.L. U/S Q 2 weeks recommended through 28 wks. Discussed PTL precautions and when to notify HCP/go to ER. Pt advised continuing progesterone through 36 wks if tolerating well. Discussed PTL precautions and when to notify HCP/go to ER. Marijuana user 04/21/2024 228329390 +UDS on NOB labs, cessation reviewed. Maternal obesity complicating , childbirth and the puerperium, antepartum 04/14/2024 [id number] Morbid obesity 07/04/2024 706672741 BMI 40.4 on intake. HgA1C 5.0. GTT: pending; see Pt Case from 07/04/24. Recommended LD ASA daily. Plan serial growth/SERVANDO U/S every 4 wks. Uterine size for dates discrepancy 07/04/2024 159682211 noted on . 12.5%. NIPT WNL. Pt educated on FKC and when to notify HCP/go to ER. Plan serial growth/SERVANDO U/S every 4 wks. High risk 07/04/2024 97222054 Hx: [id number], Delivery Methods: C/S X 1. NOB labs: O+/RI/NRx4. Last Pap: None on file; plan collection. GTT: pending; see Pt Case from 07/04/24. GBS: ____. Aneuploidy screening: Myriad NIPT WNL. MSAFP not drawn. Anatomy Scan: Complete with [facility] on 07/04/24. Shayan Calculation Initial Shayan Date Initial Exam Date Initial Exam Provider Initial Ultrasound Date Last Menstrual Period Date Ultra Sound Weeks Gestation 11/10/2024 04/14/2024 04/08/2024 03/30/2019 9 Eighteen To Twenty Week Shayan Update Ultra Sound Date Fundal Height At Umbil Quickening Date Ultra Sound Latest Weeks Gestation Final Shayan Confirmed By Final Shayan Confirmed Date Final Shayan Date Ultra Sound Latest Days Gestation 0 11/11/19 25 0 Pre-ge Flowsheet Flowsheet Date 04/14/2024 Holloway Score Blood Edema Fundus Height Fundus Units Glucose Ketones Leukocytes Nitrite Labor Signs Protein Cervic Dilation Cervic Effacement Cervic Station none none Type Weight in lbs Pre/Post Dialysis Refused With clothes 219.586828400507 BP Diastolic BP Location Tested BP Systolic BP Type 75 110 sitting Fetus Heart Rate Present Fetus Movement Comments New ob labs and genetic scre ening today. Cervical length >7cm. Plan cerclage. Flowsheet Date 04/21/2024 Holloway Score Blood Edema Fundus Height Fundus Units Glucose Ketones Leukocytes Nitrite Labor Signs Protein Cervic Dilation Cervic Effacement Cervic Station none none none neg Type Weight in lbs Pre/Post Dialysis Refused With clothes 225.467200297340 BP Diastolic BP Location Tested BP Systolic BP Type 70 R arm 118 sitting Fetus Heart Rate Present A 164 Present Fetus Movement A No Comments No OB complaints. NIPT still pending. Pt denies any cramping, LOF or bleeding. Waiting on NIPT to come back prior to scheduling cerclage. RTC in 4 weeks. Flowsheet Date 05/12/2024 Holloway Score Blood Edema Fundus Height Fundus Units Glucose Ketones Leukocytes Nitrite Labor Signs Protein Cervic Dilation Cervic Effacement Cervic Station none none Type Weight in lbs Pre/Post Dialysis Refused 225.267945879879 BP Diastolic BP Location Tested BP Systolic BP Type 78 112 Fetus Heart Rate Present A 152 Present Fetus Movement A Yes Comments No OB complaints. CXL 5.8cm, will continue cervical lengths every 2 weeks until 22 weeks. RTC in 2 weeks. Flowsheet Date 06/09/2024 Holloway Score Blood Edema Fundus Height Fundus Units Glucose Ketones Leukocytes Nitrite Labor Signs Protein Cervic Dilation Cervic Effacement Cervic Station none none none neg Type Weight in lbs Pre/Post Dialysis Refused With clothes 232.697434017397 BP Diastolic BP Location Tested BP Systolic BP Type 72 R arm 122 sitting Fetus Heart Rate Present A 152 Fetus Movement A Yes Comments Cervical legnth 5.31cm, no O B complaints. RTC in 2 weeks for anatomy and cervical length. Flowsheet Date 07/04/2024 Holloway Score Blood Edema Fundus Height Fundus Units Glucose Ketones Leukocytes Nitrite Labor Signs Protein Cervic Dilation Cervic Effacement Cervic Station none none neg Type Weight in lbs Pre/Post Dialysis Refused Weight 235.392305425155 BP Diastolic BP Location Tested BP Systolic BP Type 68 R arm 120 sitting Fetus Heart Rate Present A 152 Present Fetus Movement A Yes Comments FKC and PTL precautions revi ewed with pt, and discussed when to go in to L&D. Flowsheet Date 08/04/2024 Holloway Score Blood Edema Fundus Height Fundus Units Glucose Ketones Leukocytes Nitrite Labor Signs Protein Cervic Dilation Cervic Effacement Cervic Station none neg Type Weight in lbs Pre/Post Dialysis Refused 244.633396741905 BP Diastolic BP Location Tested BP Systolic BP Type 62 106 sitting Fetus Heart Rate Present Fetus Movement A Yes Comments -4% EFW, normal dopplers, AF I 17, good tone and movement on USDiscussed growth US with Dr Moser recommends 2 weeks follow up growth, [facility] referral-Vag dc with odor, sureswab collected, rx for Flagyl pending swab results-Urine odor, ua dip pos rx for Macrobid- culture sent-Discussed kick counts and Hospital precautions.RTC in 2 weeks Flowsheet Date 08/18/2024 Holloway Score Blood Edema Fundus Height Fundus Units Glucose Ketones Leukocytes Nitrite Labor Signs Protein Cervic Dilation Cervic Effacement Cervic Station none none none neg Type Weight in lbs Pre/Post Dialysis Refused With clothes 242.034520101017 BP Diastolic BP Location Tested BP Systolic BP Type 78 L arm 122 sitting Fetus Heart Rate Present A 160 Fetus Movement A Yes Comments Sent to [facility] for possible IUG R. EFW 14%ile with correct dating which was changed back to . Flowsheet Date 09/08/2024 Holloway Score Blood Edema Fundus Height Fundus Units Glucose Ketones Leukocytes Nitrite Labor Signs Protein Cervic Dilation Cervic Effacement Cervic Station none none none trace Type Weight in lbs Pre/Post Dialysis Refused With clothes 242.928223491479 BP Diastolic BP Location Tested BP Systolic BP Type 74 118 sitting Fetus Heart Rate Present A 144 Fetus Movement A Yes Comments -Still having dysuria after finishing abx, rx for Macrobid sent and urine culture, will start daily Macrobid prophylaxis after treating current infection-MF yesterday EFW 14%, AC 10%, repeat growth in 4 wks at [facility]-4D US today. Good breathing, tone, and movement today on US, SERVANDO 19.2cm.-Discussed weekly testing at 34 weeks-PLTCS 02/2019 for NRFHT's/Meconium. Pt would like to discuss RLTCS vs . Plan to see MD at next visit to discuss.-PTL/PROM/FM/PREE precautions given-RTC in 2 weeks Flowsheet Date 09/23/2024 Holloway Score Blood Edema Fundus Height Fundus Units Glucose Ketones Leukocytes Nitrite Labor Signs Protein Cervic Dilation Cervic Effacement Cervic Station Type Weight in lbs Pre/Post Dialysis Refused BP Diastolic BP Location Tested BP Systolic BP Type Fetus Heart Rate Present A 145 Fetus Movement Comments no ob complaintsCerclage in place, needs to be removed at 36 weeksRLTCS vs TOLAC, pt opting for TOLAC full discussion a&p Menstrual History Last Menstrual Date Menses Monthly On Bcp Conception Prior Menses Frequency Hcg Plus Date Menarche Onset Age 0103/30/2019 Genetic Screening And Infection History Question Response Note Patient's Age Will Be 35 Years Or Older At Estim ated Date of Delivery false Personal or Family History o f Neural Tube Defect (Meningomyelocele, Spina Bifida, Or Anencephaly) false Personal or Family History of Congenital Heart D efect false Maternal Metabolic Disorder (eg, Type 1 Diabetes , PKU) false Recurrent Loss, Or A Stillbirth true Patient Or Partner Has History Of Genital Herpes false Prior GBS-infected child false History of HIV false History of Hepatitis false Genetic Carrier Screen positive false Plans and Education First Trimester Discussed Date Discussion Item Discussion Note Discuss ed By 04/14/2024 Anticipated course of care [email or web address] 04/14/2024 Risk factors identif ied by history [email or web address] 04/14/2024 HIV and other routine tests [email or web address] Second Trimester Discussed Date Discussion Item Discussion Note Discuss ed By Third Trimester Discussed Date Discussion Item Discussion Note Discuss ed By Delivery Information Delivery Date Delivery Type Labor Anesthesia Weeks Gestation Incision Type Labor Labor Length Hrs Delivered By Post Complications Tubal Sterilization Discharge Date Comments Discharge Information Feeding Method Contraceptive Method Maternal HG B and HCT Levels Ob Episode Information Episode Created Date Number of Fetuses Patient Bloodtype Patient rh Status Prepregnancy Weight lbs Domestic Partner Domestic Partner Phone Father Name Ensemble Member Status 04/08/19 25 1 CLOSED Fetus Data First Name Last Name Admitted to NICU Weight (g) Sex Living Outcome Pediatric Complications Fetus ID Race Codes Race Delivery Type 2438.05 7 F Full Term [id number] Primary Shayan Calculation Initial Shayan Date Initial Exam Date Initial Exam Provider Initial Ultrasound Date Last Menstrual Period Date Ultra Sound Weeks Gestation 0 Eighteen To Twenty Week Shayan Update Ultra Sound Date Fundal Height At [place]mb[place] Quickening Date Ultra Sound Latest Weeks Gestation Final Shayan Confirmed By Final Shayan Confirmed Date Final Shayan Date Ultra Sound Latest Days Gestation 0 0 Menstrual History Last Menstrual Date Menses Monthly On Bcp Conception Prior Menses Frequency Hcg Plus Date Menarche Onset Age Delivery Information Delivery Date Delivery Type Labor Anesthesia Weeks Gestation Incision Type Labor Labor Length Hrs Delivered By Post Complications Tubal Sterilization Discharge Date Comments 9 Discharge Information Feeding Method Contraceptive Method Maternal HG B and HCT Levels Ob Episode Information Episode Created Date Number of Fetuses Patient Bloodtype Patient rh Status Prepregnancy Weight lbs Domestic Partner Domestic Partner Phone Father Name Ensemble Member Status 04/08/19 25 1 CLOSED Fetus Data First Name Last Name Admitted to NICU Weight (g) Sex Living Outcome Pediatric Complications Fetus ID Race Codes Race Delivery Type , Induced [id number] Shayan Calculation Initial Shayan Date Initial Exam Date Initial Exam Provider Initial Ultrasound Date Last Menstrual Period Date Ultra Sound Weeks Gestation 0 Eighteen To Twenty Week Shayan Update Ultra Sound Date Fundal Height At [place]mb[place] Quickening Date Ultra Sound Latest Weeks Gestation Final Shayan Confirmed By Final Shayan Confirmed Date Final Shayan Date Ultra Sound Latest Days Gestation 0 0 Menstrual History Last Menstrual Date Menses Monthly On Bcp Conception Prior Menses Frequency Hcg Plus Date Menarche Onset Age Delivery Information Delivery Date Delivery Type Labor Anesthesia Weeks Gestation Incision Type Labor Labor Length Hrs Delivered By Post Complications Tubal Sterilization Discharge Date Comments 2 Discharge Information Feeding Method Contraceptive Method Maternal HG B and HCT Levels
--- OUTSIDE RECORDS SUMMARY | 2024-10-01 12:05 | XMS_ITS | Data Portability ---
[facility] Organization [facility] Address [address] [place] [address] Assessment No assessment recorded. Plan of Treatment Reminders Order Date Submit Date Provider Last Modified By Organization Details Last Modified Time Details Appointments None recorde dCuauhtemoc Lab urinaly sis, dipstic k 2018 019 NED In-Office Order, Internal Use Only DO Not Attach Compendium DO Not Attach Compendium, Do Not Delete/merge, [id number] 11:10:45 urinaly sis, dipstic k 2018 019 NED In-Office Order, Internal Use Only DO Not Attach Compendium DO Not Attach Compendium, Do Not Delete/merge, [id number] 11:02:28 CBC 2018 019 NED [facility], [facility], [address], [place], [address], 9 21:09:29 RPR (rapid plasma reagin) , serum 2018 019 NED [facility], [address], [place], [address], 9 08:13:15 HIV (1+2) Ab screen, serum 2018 019 NED [facility], [address], [place], [address], 9 08:13:14 strepto coccus group B, culture , unspeci fied specime n 2018 cathryn [facility], [address], [address], [place], [address], 9 12:34:51 bacteri al vaginos is + vaginit is panel, vaginal 2018 NED [facility], [address], [address], [place], [address], 9 13:07:52 urinaly sis, dipstic k 2018 NED In-Office Order, Internal Use Only DO Not Attach Compendium DO Not Attach Compendium, Do Not Delete/merge, [id number] 15:32:03 Referral None recorde d. Procedures None recorde d. Surgeries None recorde d. Imaging None recorde d. Medication Orders None recorde d. Patient TargetsNo targets recorded. Patient InstructionsNo instructions recorded. Reason for Referral None Reported. Results Created Date Observation Date Name Description Value Unit Range Abnormal Flag Note LastModifiedBy Organization Detail LastModifiedTime 01/26/2001/25/2019 urina lysis , dipst ick Leukocytes Large Not Available In-Offi ce Order Internal Use Only DO Not Attach Compendium DO Not Attach Compendium, Do Not Delete/merge, [id number] 01/25/2019 10:39:45 01/26/2001/25/2019 urina lysis , dipst ick Nitrite negati ve Not Available In-Office Order Internal Use Only DO Not Attach Compendium DO Not Attach Compendium, Do Not Delete/merge, 01/25/2019 10:39:45 01/26/20 19 01/25/2019 urina lysis , dipst ick Urobilinogen 1 Not Available In-Of fice Order Internal Use Only DO Not Attach Compendium DO Not Attach Compendium, Do Not Delete/merge, 01/25/2019 10:39:45 01/26/20 19 01/25/2019 urina lysis , dipst ick Protein Negati ve Not Available In-Office Order Internal Use Only DO Not Attach Compendium DO Not Attach Compendium, Do Not Delete/merge, [id number] 01/25/2019 10:39:45 01/26/20 19 01/25/2019 urina lysis , dipst ick pH 6.0 Not Available In-Office Order Internal Use Only DO Not Attach Compendium DO Not Attach Compendium, Do Not Delete/merge, [id number] 01/25/2019 10:39:45 01/26/20 19 01/25/2019 urina lysis , dipst ick Blood Hemoly zed: Trace Not Available In-Office Order Internal Use Only DO Not Attach Compendium DO Not Attach Compendium, Do Not Delete/merge, [id number] 01/25/2019 10:39:45 01/26/20 19 01/25/2019 urina lysis , dipst ick Specific Altheimer 1.025 Not Available In-Off ice Order Internal Use Only DO Not Attach Compendium DO Not Attach Compendium, Do Not Delete/merge, [id number] 01/25/2019 10:39:45 01/26/20 19 01/25/2019 urina lysis , dipst ick Ketone Negati ve Not Available In-Office Order Internal Use Only DO Not Attach Compendium DO Not Attach Compendium, Do Not Delete/merge, [id number] 01/25/2019 10:39:45 01/26/20 19 01/25/2019 urina lysis , dipst ick Bilirubin Negati ve Not Available In-Office Order Internal Use Only DO Not Attach Compendium DO Not Attach Compendium, Do Not Delete/merge, [id number] 01/25/2019 10:39:45 01/26/20 19 01/25/2019 urina lysis , dipst ick Glucose Negati ve Not Available In-Office Order Internal Use Only DO Not Attach Compendium DO Not Attach Compendium, Do Not Delete/merge, [id number] 01/25/2019 10:39:45 02/09/20 19 02/08/2019 urina lysis , dipst ick Leukocytes Large Not Available In-Offi ce Order Internal Use Only DO Not Attach Compendium DO Not Attach Compendium, Do Not Delete/merge, [id number] 02/08/2019 15:08:45 02/09/20 19 02/08/2019 urina lysis , dipst ick Nitrite negati ve Not Available In-Office Order Internal Use Only DO Not Attach Compendium DO Not Attach Compendium, Do Not Delete/merge, [id number] 02/08/2019 15:08:45 02/09/20 19 02/08/2019 urina lysis , dipst ick Urobilinogen .2 Not Available In-Of fice Order Internal Use Only DO Not Attach Compendium DO Not Attach Compendium, Do Not Delete/merge, [id number] 02/08/2019 15:08:45 02/09/20 19 02/08/2019 urina lysis , dipst ick Protein Negati ve Not Available In-Office Order Internal Use Only DO Not Attach Compendium DO Not Attach Compendium, Do Not Delete/merge, [id number] 02/08/2019 15:08:45 02/09/20 19 02/08/2019 urina lysis , dipst ick pH 6.0 Not Available In-Office Order Internal Use Only DO Not Attach Compendium DO Not Attach Compendium, Do Not Delete/merge, [id number] 02/08/2019 15:08:45 02/09/20 19 02/08/2019 urina lysis , dipst ick Blood Negati ve Not Available In-Office Order Internal Use Only DO Not Attach Compendium DO Not Attach Compendium, Do Not Delete/merge, [id number] 02/08/2019 15:08:45 02/09/20 19 02/08/2019 urina lysis , dipst ick Specific Altheimer 1.020 Not Available In-Off ice Order Internal Use Only DO Not Attach Compendium DO Not Attach Compendium, Do Not Delete/merge, [id number] 02/08/2019 15:08:45 02/09/20 19 02/08/2019 urina lysis , dipst ick Ketone Negati ve Not Available In-Office Order Internal Use Only DO Not Attach Compendium DO Not Attach Compendium, Do Not Delete/merge, [id number] 02/08/2019 15:08:45 02/09/20 19 02/08/2019 urina lysis , dipst ick Bilirubin Negati ve Not Available In-Office Order Internal Use Only DO Not Attach Compendium DO Not Attach Compendium, Do Not Delete/merge, [id number] 02/08/2019 15:08:45 02/09/2002/08/2019 urina lysis , dipst ick Glucose Negati ve Not Available In-Office Order Internal Use Only DO Not Attach Compendium DO Not Attach Compendium, Do Not Delete/merge, [id number] 02/08/2019 15:08:45 02/23/20 19 02/22/2019 CBC WBC 8.6 K/uL 3.4-10 .8 Not Available [facility] (Lab) [address] [place], [address], 02/22/2019 21:09:29 02/23/2002/22/2019 CBC red blood count 3.7 M/uL 4.2-5. 4 low Not Available [facility] (Lab) [address] [place], [address], 02/22/2019 21:09:29 02/23/20 19 02/22/2019 CBC hemoglobin 11.5 g/dL 11.5-1 5.5 Not Available [facility] (Lab) [address] [place], [address], 02/22/2019 21:09:29 02/23/20 19 02/22/2019 CBC hematocrit 35.5 % 36.0-4 8.0 low Not Available [facility] (Lab) [address] [place], [address], 02/22/2019 21:09:29 02/23/2002/22/2019 CBC MCV 96 fL 80-95 high Not Available [facility] (Lab) [address] [place], [address], 02/22/2019 21:09:29 02/23/20 19 02/22/2019 CBC MCH 31 pg 27-32 Not Available [facility] (Lab) [address] [place], [address], 02/22/2019 21:09:29 02/23/20 19 02/22/2019 CBC MCHC 32 g/dL 32-36 Not Available [facility] (Lab) [address] [place], [address], 02/22/2019 21:09:29 02/23/20 19 02/22/2019 CBC platelets 273 K/uL 155-37 9 Not Available [facility] (Lab) [address] [place], [address], 02/22/2019 21:09:29 02/23/20 19 02/22/2019 CBC RDW 12.6 % 11.5-1 4.5 Not Available [facility] (Lab) [address] [place], [address], 02/22/2019 21:09:29 02/23/20 19 02/22/2019 CBC MPV 10.7 fL 8.9-12 .7 Not Available [facility] (Lab) [address] [place], [address], 02/22/2019 21:09:29 02/23/20 19 02/23/2019 HIV (1+2) Ab scree n, serum HIV 4TH generation Non Reacti ve non reacti ve Not Available [facility] (Lab) [address] [place], [address], 02/23/2019 08:13:13 02/23/20 19 02/23/2019 RPR (rapi d plasm a reagi n), serum RPR Non Reacti ve non reacti ve Not Available [facility] (Lab) [address] [place], [address], 02/23/2019 08:13:15 02/23/20 19 02/26/2019 cultu re, vagin al/re ctal, strep tococ cus group B strep gp B culture Negati ve negati ve Cente rs for Disea se Contr ol and Preve ntion (CDC) and Ameri can Congr ess of Obste trici ans and Gynec ologi sts (ACOG ) guide lines for preve ntion of perin atal group B strep tococ aguila (GBS) disea se speci fy co-co llect ion of a vagin al and recta l swab speci men to maxim ize sensi tivit y of GBS detec tion. Per the CDC and ACOG, swabb ing both the lower vagin a and rectu m subst antia lly incre ases the yield of detec tion geoffrey red with sampl ing the vagin a alone . . Penic illin G, ampic illin , or cefaz pascual are indic ated for intra partu m proph ylaxi s of perin atal GBS colon izati on. Refle x susce ptibi lity testi ng shoul d be perfo rmed prior to use of clind amyci n only on GBS isola champ from penic illin -luis miguel rgic women who are consi dered a high risk for anaph ylaxi s. Treat ment with vanco mycin witho ut addit ional testi ng is warra nted if resis tance to clind amyci n is noted . Not Available [facility] (Lab) [address] [place], [address], 02/26/2019 10:08:19 02/23/20 19 02/26/2019 bacte rial vagin osis + vagin itis panel , vagin al atopobium vaginae Low - 0 score Not Available [facility] (Lab) [address] [facility], [place], [address], 02/26/2019 13:07:52 02/23/20 19 02/26/2019 bacte rial vagin osis + vagin itis panel , vagin al bvab 2 Modera te - 1 score Not Available [facility] (Lab) [address] [facility], [place], [address], 02/26/2019 13:07:52 02/23/2002/26/2019 bacte rial vagin osis + vagin itis panel , vagin al megasphaera 1 High - 2 score abnormal Calcu late total score by nimco rocha the 3 indiv idual bacte rial vagin osis (BV) marke r score s toget her. Total score is inter prete d as follo ws: Total score 0-1: Indic ates the absen ce of BV. Total score 2: Indet ermin ate for BV. Addit ional clini aguila data shoul d be evalu ated to estab bin a diagn osis. Total score 3-6: Indic ates the prese nce of BV. . This test was devel oped and its perfo rmanc e chris cteri stics deter mined by [employer]. It has not been clear ed or appro ranjana by the Food and Drug Admin istra tion. The FDA has deter mined that such clear ance or appro yared is not neces zuleima. Not Available [facility] (Lab) [address] [place], [address], 02/26/2019 13:07:52 02/23/20 19 02/26/2019 bacte rial vagin osis + vagin itis panel , vagin al shonda albicans, MARIA ESTHER Negati ve negati ve Not Available [facility] (Lab) [address] [facility], [place], [address], 02/26/2019 13:07:52 02/23/20 19 02/26/2019 bacte rial vagin osis + vagin itis panel , vagin al shonda glabrata, MARIA ESTHER Negati ve negati ve This test was devel oped and its perfo rmanc e chris cteri stics deter mined by [employer] [facility]. It has not been clear ed or appro rajnana by the Food and Drug Admin istra tion. The FDA has deter mined that such clear ance or appro yared is not neces zuleima. Not Available [facility] (Lab) [address] [facility], [place], [address], 02/26/2019 13:07:52 02/23/20 19 02/26/2019 bacte rial vagin osis + vagin itis panel , vagin al trich vag by MARIA ESTHER Negati ve negati ve Not Available [facility] (Lab) [address] [place], [address], 02/26/2019 13:07:52 02/23/20 19 02/26/2019 bacte rial vagin osis + vagin itis panel , vagin al chlamydia trachomatis, MARIA ESTHER Negati ve negati ve Not Available [facility] (Lab) [address], [place], [address], 02/26/2019 13:07:52 02/23/20 19 02/26/2019 bacte rial vagin osis + vagin itis panel , vagin al neisseria gonorrhoeae, MARIA ESTHER Negati ve negati ve Not Available [facility] (Lab) [address], [place], [address], 02/26/2019 13:07:52 02/24/20 19 02/23/2019 urina lysis , dipst ick Leukocytes Large Not Available In-Offi ce Order Internal Use Only DO Not Attach Compendium DO Not Attach Compendium, Do Not Delete/merge, [id number] 02/22/2019 11:50:08 02/24/20 19 02/23/2019 urina lysis , dipst ick Nitrite negati ve Not Available In-Office Order Internal Use Only DO Not Attach Compendium DO Not Attach Compendium, Do Not Delete/merge, [id number] 02/22/2019 11:50:08 02/24/20 19 02/23/2019 urina lysis , dipst ick Urobilinogen 1 Not Available In-Of fice Order Internal Use Only DO Not Attach Compendium DO Not Attach Compendium, Do Not Delete/merge, [id number] 02/22/2019 11:50:08 02/24/20 19 02/23/2019 urina lysis , dipst ick Protein Negati ve Not Available In-Office Order Internal Use Only DO Not Attach Compendium DO Not Attach Compendium, Do Not Delete/merge, [id number] 02/22/2019 11:50:08 02/24/20 19 02/23/2019 urina lysis , dipst ick pH 7.0 Not Available In-Office Order Internal Use Only DO Not Attach Compendium DO Not Attach Compendium, Do Not Delete/merge, [id number] 02/22/2019 11:50:08 02/24/20 19 02/23/2019 urina lysis , dipst ick Blood Negati ve Not Available In-Office Order Internal Use Only DO Not Attach Compendium DO Not Attach Compendium, Do Not Delete/merge, [id number] 02/22/2019 11:50:08 02/24/20 19 02/23/2019 urina lysis , dipst ick Specific Altheimer 1.020 Not Available In-Off ice Order Internal Use Only DO Not Attach Compendium DO Not Attach Compendium, Do Not Delete/merge, [id number] 02/22/2019 11:50:08 02/24/20 19 02/23/2019 urina lysis , dipst ick Ketone Negati ve Not Available In-Office Order Internal Use Only DO Not Attach Compendium DO Not Attach Compendium, Do Not Delete/merge, [id number] 02/22/2019 11:50:08 02/24/20 19 02/23/2019 urina lysis , dipst ick Bilirubin Negati ve Not Available In-Office Order Internal Use Only DO Not Attach Compendium DO Not Attach Compendium, Do Not Delete/merge, [id number] 02/22/2019 11:50:08 02/24/20 19 02/23/2019 urina lysis , dipst ick Glucose Negati ve Not Available In-Office Order Internal Use Only DO Not Attach Compendium DO Not Attach Compendium, Do Not Delete/merge, [id number] 02/22/2019 11:50:08 04/04/19 20 04/04/2019 urina lysis , dipst ick Leukocytes Large Not Available In-Offi ce Order Internal Use Only DO Not Attach Compendium DO Not Attach Compendium, Do Not Delete/merge, [id number] 03/01/2019 10:04:17 04/04/19 20 04/04/2019 urina lysis , dipst ick Nitrite negati ve Not Available In-Office Order Internal Use Only DO Not Attach Compendium DO Not Attach Compendium, Do Not Delete/merge, [id number] 03/01/2019 10:04:17 04/04/19 20 04/04/2019 urina lysis , dipst ick Urobilinogen .2 Not Available In-Of fice Order Internal Use Only DO Not Attach Compendium DO Not Attach Compendium, Do Not Delete/merge, [id number] 03/01/2019 10:04:17 04/04/19 20 04/04/2019 urina lysis , dipst ick Protein Negati ve Not Available In-Office Order Internal Use Only DO Not Attach Compendium DO Not Attach Compendium, Do Not Delete/merge, [id number] 03/01/2019 10:04:17 04/04/19 20 04/04/2019 urina lysis , dipst ick pH 7.0 Not Available In-Office Order Internal Use Only DO Not Attach Compendium DO Not Attach Compendium, Do Not Delete/merge, [id number] 03/01/2019 10:04:17 04/04/19 20 04/04/2019 urina lysis , dipst ick Blood Negati ve Not Available In-Office Order Internal Use Only DO Not Attach Compendium DO Not Attach Compendium, Do Not Delete/merge, [id number] 03/01/2019 10:04:17 04/04/19 20 04/04/2019 urina lysis , dipst ick Specific Altheimer 1.020 Not Available In-Off ice Order Internal Use Only DO Not Attach Compendium DO Not Attach Compendium, Do Not Delete/merge, [id number] 03/01/2019 10:04:17 04/04/19 20 04/04/2019 urina lysis , dipst ick Ketone Negati ve Not Available In-Office Order Internal Use Only DO Not Attach Compendium DO Not Attach Compendium, Do Not Delete/merge, [id number] 03/01/2019 10:04:17 04/04/19 20 04/04/2019 urina lysis , dipst ick Bilirubin Negati ve Not Available In-Office Order Internal Use Only DO Not Attach Compendium DO Not Attach Compendium, Do Not Delete/merge, [id number] 03/01/2019 10:04:17 04/04/19 20 04/04/2019 urina lysis , dipst ick Glucose Negati ve Not Available In-Office Order Internal Use Only DO Not Attach Compendium DO Not Attach Compendium, Do Not Delete/merge, [id number] 03/01/2019 10:04:17 Result Notes None recorded. Problems Name Problem SNOMED Code Status Onset Date Resolution Date Notes Provider Name and Address Organization Details Recorded Time Pregnanc y 96327771 Completed 201803/15/2019 [place] - [place] 9 16:44:01 Miscarri age in second trimeste r 74313013 Completed Evaluate for incompete nt cervix. MFM recommend s Uriah. Clemencia ordered 10/25. No insurance Cerclage placed 11/12 [facility], JAYLIN Echols SIF[facility]ANCI 9 16:43:50 History of asthma 171422060 Completed Was told she grew out of it. Last inhaler use age 10 [facility], JAYLIN - [facility] 9 16:43:50 Harmful pattern of use of cannabis 12092017 Completed Recommend cessation [facility] [place] - SIRad[place] 9 16:43:50 Urinary tract infectio us disease 78403401 Completed K. pneumonia RX. macrobid Urine culture 12/30 [facility] [place] - [place] 9 16:43:50 Genital herpes simplex 71611189 Completed Denied history of outbreaks . Start suppressi on at 19w [facility], JAYLIN PENN 9 16:43:50 Cervical incompet ence 16889837 Completed Cerclage placed 11/10 by [facility] Plans for removal at 37w [facility], JAYLIN - [facility] 9 16:43:50 Urinary tract infectio n in pregnanc y 035401596 Active JAYLIN Madsen - [facility] 7 11:14:36 Urinary tract infectio n in pregnanc y 906152859 Completed JAYLIN Madsen - [facility] 7 11:14:36 Genital herpes simplex 35579203 Completed JAYLIN Madsen - SIR[facility] 7 11:14:36 Problem Notes None recorded. Medical Equipment None Reported. Allergies No known drug allergies Medications Name Sig Start Date Stop Date Status Note LastModified by Organization Details LastModified Time nystatin 100,000 unit/mL oral suspension active Not Available Not Available N ot Available hydrocodone 5 mg-acetamin ophen 325 mg tablet active Not Available Not Available No t Available acyclovir 400 mg tablet TAKE 1 TABLET BY MOUTH TWICE DAILY active Not Available Not Available No t Available Vitamin tablet Take 1 tablet every day by oral route as needed. 2015 active Not Available Not Available Not Avai lable DOK 100 mg capsule active Not Available Not Available Not Available ferrous sulfate 325 mg (65 mg iron) tablet active Not Available Not Available Not Available ibuprofen 600 mg tablet active Not Available Not Available Not Available ondansetron 4 mg disintegrat ing tablet active Not Available Not Available N ot Available naproxen 500 mg tablet active Not Available Not Available Not Available hydroxyprog esterone caproate (bulk) 100 % powder active Not Available Not Available Not Available nitrofurant oin monohydrate /macrocryst als 100 mg capsule Take 1 capsule every 12 hours by oral route for 10 days. 12/02 completed Not Available Not Available Not Available Vitamins active Not Available Not Available Not Available Gummy 400 mcg-35 mg-25 mg-5 mg chewable tablet Take 1 tablet by oral route. 2018 active Not Available Not Available Not Avai lable PrePlus 27 mg iron-1 mg tablet active Not Available Not Available No t Available Zofran (base) 12/02 completed Not Available Not Available Not Available Vol-Plus 27 mg iron-1 mg tablet active Not Available Not Available No t Available Clemencia 250 mg/mL (1 mL) intramuscul ar oil Inject 1 mL every week by intramusc ular route. 2018 active Not Available Not Available Not Avai lable Vitals Date Recorded Body height Body mass index (BMI) Systolic And Diastolic Provider Name and Address Organization Details Last Updated DateTime 02/08/2019 160.02 cm 38.7 kg/m2 122/60 mm[Hg] Nhung Llanos LPN [facility] 02/08/2019 15:30:24 Date Recorded Body weight Provider Name an d Address Organization Details Last Updated DateTime 02/08/2019 64792.590368 g [facility] 02/22/20 19 08:08:08 Date Recorded Body weight Provider Name an d Address Organization Details Last Updated DateTime 02/22/2019 202672.31751 g [facility] 02/23/20 19 15:20:50 Date Recorded Body height Body mass index (BMI) Systolic And Diastolic Provider Name and Address Organization Details Last Updated DateTime 02/22/2019 160.02 cm 39.1 kg/m2 100/60 mm[Hg] Irma Martinez MA [facility] 02/22/2019 11:57:52 Date Recorded Body weight Provider Name an d Address Organization Details Last Updated DateTime 03/01/2019 350115.80050 g Valeria Ontiveros [facility] 03/01/20 14:32:43 Date Recorded Body height Body mass index (BMI) Systolic And Diastolic Provider Name and Address Organization Details Last Updated DateTime 03/01/2019 160.02 cm 40 kg/m2 112/62 mm[Hg] Irma Martinez MA [facility] 03/01/2019 10:06:28 Date Recorded Body height Body mass index (BMI) Body weight Provider Name and Address Organization Details Last Updated DateTime 03/15/2019 160.02 cm 37.6 kg/m2 10313.93382 g Irma Martinez MA [facility] 03/15/2019 16:43:59 Date Recorded Body height Body mass index (BMI) Body weight Systolic And Diastolic Provider Name and Address Organization Details Last Updated DateTime 03/24/2019 160.02 cm 36 kg/m2 19353.25 g 100/60 mm[Hg] Irma Martinez MA [facility] 03/24/2019 10:57:33 Social History Question Answer Notes LastModified by Organizat ion Details LastModified Time Tobacco Smoking Status Never Smoker Mavis Duke MA null, [facility] 07/30/2015 11:27:41 Do You Have An Advance Directive? No Information not available 09/07/2018 If You Are , What Was Your Level Of Alcohol Consumption Prior To ? Occasional 2-3 Drinks Every Other Week. Information not available 09/07/2018 Plan No Information no t available 09/07/2018 Is Blood Transfusion Acceptable In An Emergency? Yes Information not available 07/30/2015 What Is Your Level Of Caffeine Consumption? None Information not available 09/07/2018 Live With Cats/exposure To Cat Litter No Information not available 09/07/2018 How Much Tobacco Do You Chew? None Information not available 09/07/2018 What Type Of Diet Are You Following? REGULAR Information not available 09/07/2018 Which Illicit Or Recreational Drugs Have You Used? Cannabis Information not available 09/07/2018 Education 12 Information no t available 07/30/2015 Have There Been Any Changes To Your Family Or Social Situation? No Information not available 09/07/2018 Frequent Air Travel No Information not available 09/07/2018 Live Alone Or With Others? With Others Information not available 07/30/2015 Marital Status Single Informatio n not available 09/07/2018 What Was The Date Of Your Most Recent Tobacco Screening? 09/20/2018 Information not available 10/21/2018 How Many Children Do You Have? 0 Information not available 07/30/2015 Performs Monthly Self-breast Exam? Yes Information not available 09/07/2018 Do You Use Protection During Sex? No Information not available 07/30/2015 What Is Your Relationship Status? Single Information not available 07/30/2015 Seat Belts Used Routinely Yes Information not available 09/07/2018 Are You Sexually Active? Yes Information not available 07/30/2015 How Much Tobacco Do You Smoke? No [email or web address] Information not available 07/30/2015 General Stress Level Low Information not available 09/07/2018 Do You Use Sunscreen Routinely? No Information not available 09/07/2018 Sex: Unknown Functional Status Question Answer Note LastModified by Organizat ion Details LastModified Time What is your level of alcohol consumption? Occasional Last alcohol use July 2018 Information not available 09/07/2018 Are you currently employed? 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 Occasional Swimming Information not available 09/07/2018 Mental Status None recorded. Family History Relationship Description Onset Age of this Age Resolved Age Notes LastModified by Organization Details LastModified Time Maternal Grandfather Hypertensive disorder Not available 2015 11:41:59 Maternal Grandfather Diabetes mellitus Not available 2015 11:41:59 Maternal Grandmother Arthritis Not available 04/2015 11:41:59 Medical History Condition Response Other N High Blood Pressure N Breast Cancer N Thyroid Problems N Kidney or Bladder Problems N GI Problems N Depression N Blood Clots N Lung Disease N Acne N Eating Disorder N Breast Problem N Anemia N Anesthesia Complications N Headaches/Migraines N Anxiety Disorder N Diabetes N Ovarian Cancer N Muscle, Joint, or Bone Problems N Blood Transfusions N Seizures/Epilepsy N Polyps N Infertility N Acid Reflux (GERD) N Cancer N Abuse/Domestic Violence N Asthma Y Endometriosis N High Cholesterol N Hepatitis N Liver Disease N Heart Disease N Pre-Eclampsia N Osteoporosis N Gynecological History Statement/Question Response Abnormal Pap N Flow Light On BCP's at Conception? N STIs/STDs N HPV Vaccine Y Duration of Flow (days) 5 Age at Menarche 15 Current Control Method Frequency of Cycle (Q days) 28 Sexually Active? Y Menses Monthly Y Date of Last Pap Smear Sexual Problems? N LMP Approximate Desired Control Method N/A Obstetrics History GPAL:G 2 P 1 1 0 0 Type Value Full Term 1 Premature 1 Living 0 Total 2 Past Encounters Encounter ID Performer Location Encounter Start Date Encounter Closed Date Diagnosis/Indication Diagnosis SNOMED-CT Code Diagnosis ICD10 Code Diagnosis Note [id number] Valeria Ontiveros MD [address] [address] 07/30/2015 11:01:38 07/30/2015 12:55:46 Normal 64276569 Z33.1 Z34.01 Urinary tr act infection in 321474643 O23.41 Completed antibiotic s. [id number] Valeria Ontiveros MD [address] [address] 09/07/2018 09:42:44 09/08/2018 07:44:49 Normal 44148136 Z33.1 Z34.01 Miscarriag e in second trimester 87148820 O03.9 History of 21w6d loss. Refer to [facility] for evaluation . Possible incompeten t cervix. [id number] Valeria Ontiveros MD [address] [address] 09/20/2018 16:02:59 09/20/2018 16:48:00 Normal 21619997 Z33.1 Z34.01 [id number] Valeria Ontiveros MD [address] [address] 3 10/25/2018 11:57:35 10/27/2018 14:18:30 Normal 27335382 Z33.1 Z34.01 Past pregn warren history of premature delivery 124669235 Z87.51 Genital he rpes simplex 98358091 A60.9 [id number] Valeria Ontiveros MD [address] [address] 3 11/08/2018 10:10:32 11/08/2018 11:16:08 Normal 92734888 Z33.1 Z34.01 History of urinary tract infection 7486163881 107 Z87.476 [id number] Valeria Ontiveros MD [address] [address] 3 11/15/2018 10:12:03 11/23/2018 15:25:54 Normal 84210292 Z33.1 Z34.01 [id number] Valeria Ontiveros MD [address] [address] 3 11/22/2018 10:25:16 11/23/2018 15:05:11 Normal 87731977 Z33.1 Z34.01 [id number] Valeria Ontiveros MD [address] [address] 3 12/02/2018 09:08:44 12/02/2018 14:49:17 Normal 28888448 Z33.1 Z34.01 15313148 Z33.1 [id number] Valeria Ontiveros MD [address] [address] 3 12/21/2018 10:06:31 12/23/2018 12:29:49 Normal 35797981 Z33.1 Z34.01 [id number] Valeria Ontiveros MD [address] [address] 3 12/30/2018 12:07:09 12/30/2018 16:04:27 Normal 75542302 Z33.1 Z34.01 Urinary tr act infectious disease 80862568 N39.0 History of UTi, check culture [id number] Valeria Ontiveros MD [address] [address] 01/25/2019 10:06:44 01/25/2019 12:13:41 Normal 46275405 Z33.1 Z34.01 [id number] Valeria Ontiveros MD [address] [address] 3 02/08/2019 14:18:30 02/21/2019 08:08:53 Normal 92308964 Z33.1 Z34.01 [id number] Valeria Ontiveros MD [address] [address] 3 02/22/2019 11:13:57 02/22/2019 15:23:15 Normal 32122624 Z33.1 Z34.01 [id number] Valeria Ontiveros MD [address] [address] 3 03/01/2019 09:09:05 03/01/2019 14:33:20 Normal 86569001 Z33.1 Z34.01 [id number] Valeria Ontiveros MD [address] [address] 03/15/2019 16:35:58 03/21/2019 11:15:04 Postoperative visit 531628624 Z09 No signs of infection. Incision intact. RTC in 1 week for re-evaluta tion and 4 weeks for PP exam. [id number] Valeria Ontiveros MD [address] [address] 03/24/2019 10:32:06 03/24/2019 11:35:42 Postoperative visit 836207005 Z09 Incision intact. RTC 4 weeks for PP exam. Health Concerns Section Related Observation LastModified by Organization Detai ls LastModified Time None Recorded Concern Status LastModified by Organization Details LastModified Time None Recorded Advance Directives Directive N: Payers Insurance Date Sequence Insurance Name Policy Number Policy Rios Covered Member ID Rios Member ID Guarantor Name 08/22/2022 1 [facility] PRIOR TO 2020 (MEDICAID REPLACEMENT - HMO) Dora Beauchamp [id number] [facility] 12/02/2018 1 *SELF PAY* [facility] 11/18/2022 [place] [employer] [facility] [id number] [facility] 01/17/2019 SLIDING FEE SCHEDULE - DISCOUNT [facility] 08/22/2022 1 [place] [place] [facility] [id number] 08/22/2022 1 [facility] PRIOR TO 09/27/2020 (MEDICAID REPLACEMENT - HMO) [facility] [id number] [facility] 11/18/2022 [facility] PRIOR TO 09/27/2020 (MEDICAID REPLACEMENT - HMO) [facility] [id number] [facility] 08/22/2022 1 [facility] PRIOR TO 09/27/2020 (MEDICAID REPLACEMENT - HMO) [facility] [id number] [facility] Notes Date Note Type Note Provider Name and Address Organization Details Recorded Time 02/08/2019 text/html 34w2d OB visit Valeria mijares [facility] 02/22/2019 22:55:27 02/22/2019 text/html 36w2d OB visit Valeria mijares [facility] 02/22/2019 15:23:01 03/01/2019 text/html 37w2d OB visits Valeria mijares [facility] 03/01/2019 14:33:13 03/15/2019 text/html 1 week S/P primary C/section. Thinks right side of incision has come open. Pain controlled. Bottle and breast feeding. No other compliants. Lochia decreasing. Valeria mijares [facility] 03/21/2019 11:14:56 03/24/2019 text/html 2 weeks S/P primary c/section. Here for incision check. No pain complaints. Ambulating and voiding well. No bleeding. Has not resumed intercourse, but plans for condoms. No depressive symptoms. Valeria mijares [facility] 03/24/2019 11:35:36 OBGyn Episode Ob Episode Information Episode Created Date Number of Fetuses Patient Bloodtype Patient rh Status Prepregnancy Weight lbs Domestic Partner Domestic Partner Phone Father Name Econometrician Status 09/08/19 19 1 O Positive CLOSED Fetus Data First Name Last Name Admitted to NICU Weight (g) Sex Living Outcome Pediatric Complications Fetus ID Race Codes Race Delivery Type Cyril dotson 2693.20 25 F Full Term Baby was not breathing upon delivery due to mucus doctors admitted baby to nicu. [id number] 2057-08 Afric an Ameri can Problems Problem Notes Problem Name Start Date End Date Resolution Snomed Code Not e Genital herpes simplex 43480104 Denied history of outbreaks. Start suppression at 19w Urinary tract infectious disease 82697113 K. pneumo narendra RX. macrobidUrine culture 12/30 Miscarriage in second trimester 37923207 Evaluate fo r incompetent cervix.[facility] recommends Clemencia.Clemencia ordered 10/25.No insuranceCerclage placed 11/12 History of asthma 114243327 [place] told she grew out of it.Last inhaler use age 10 Harmful pattern of use of cannabis 00856703 Recommend ce ssation Cervical incompetence 64020755 [facility] Jordan Calculation Initial Jordan Date Initial Exam Date Initial Exam Provider Initial Ultrasound Date Last Menstrual Period Date Ultra Sound Weeks Gestation 03/20/2019 09/07/2018 09/17/2018 06/13/2018 14 Eighteen To Twenty Week Jordan Update Ultra Sound Date Fundal Height At Umbil Quickening Date Ultra Sound Latest Weeks Gestation Final Jordan Confirmed By Final Jordan Confirmed Date Final Jordan Date Ultra Sound Latest Days Gestation 0 03/20/20 19 0 Pre- Flowsheet Flowsheet Date 09/07/2018 Holloway Score Blood Edema Fundus Height Fundus Units Glucose Ketones Leukocytes Nitrite Labor Signs Protein Cervic Dilation Cervic Effacement Cervic Station neg none none negative Other (see comments ) trace 0cm 0% Type Weight in lbs Pre/Post Dialysis Refused Weight 185.76150398203 BP Diastolic BP Location Tested BP Systolic BP Type 62 108 sitting Fetus Heart Rate Present A Absent Fetus Movement A No Comments Here for intake exam. Rajwinder Valle MP 06/13/18[facility] Prior with a loss at 21w6d. Reports having contractions that woke her from sleep and delivered immediately at [facility] when using the bathroom. Referral to [facility]. No movement, No cramping, No bleeding, No LOF. labs today. US with cervical length. RTC in 2 weeks. Flowsheet Date 09/20/2018 Holloway Score Blood Edema Fundus Height Fundus Units Glucose Ketones Leukocytes Nitrite Labor Signs Protein Cervic Dilation Cervic Effacement Cervic Station neg none 15 cm none negative Other (see comments ) neg Type Weight in lbs Pre/Post Dialysis Refused With clothes 185.035169596804 BP Diastolic BP Location Tested BP Systolic BP Type 78 118 sitting Fetus Heart Rate Present A 159 Present Fetus Movement A Yes Comments Reports starting medication for UTI. Denied feeling pressure or cramping. + FM, No bleeding.Has appt with M next week. Cervical length is 4.8 cm. Cervix closed.Reports cessation of cannabis. RTC in 3 weeks. Flowsheet Date 10/25/2018 Holloway Score Blood Edema Fundus Height Fundus Units Glucose Ketones Leukocytes Nitrite Labor Signs Protein Cervic Dilation Cervic Effacement Cervic Station neg none 20 none negative Other (see comments ) neg Type Weight in lbs Pre/Post Dialysis Refused Weight 186.474745693173 BP Diastolic BP Location Tested BP Systolic BP Type 72 116 Fetus Heart Rate Present A 139 Present Fetus Movement A Yes Comments + FM, No LOF, No bleeding, N o cramping.Seen by MFM with long cervix. Recommendation for Uriah. Has F/U appt with M. Flowsheet Date 11/08/2018 Holloway Score Blood Edema Fundus Height Fundus Units Glucose Ketones Leukocytes Nitrite Labor Signs Protein Cervic Dilation Cervic Effacement Cervic Station neg none 22 cm none negative Other (see comments ) neg Type Weight in lbs Pre/Post Dialysis Refused With clothes 187.599556728403 BP Diastolic BP Location Tested BP Systolic BP Type 72 110 sitting Fetus Heart Rate Present A 144 Present Fetus Movement A Yes Comments Here for Uriah shot. Insura nce not currently active, so medication is not available. Patient reports attempting to get insurance reinstated.+ FM, No LOF, No bleeding, No cramping. Has F/U appt with MFM on Thursday. Patient reported compliance with antibiotics for UTI. Check urine culture. Flowsheet Date 11/15/2018 Holloway Score Blood Edema Fundus Height Fundus Units Glucose Ketones Leukocytes Nitrite Labor Signs Protein Cervic Dilation Cervic Effacement Cervic Station neg none 22 cm none negative Other (see comments ) neg Type Weight in lbs Pre/Post Dialysis Refused Weight 192.806684424530 BP Diastolic BP Location Tested BP Systolic BP Type 74 112 sitting Fetus Heart Rate Present A 144 Present Fetus Movement A Yes Comments Reports cerclage placed with [facility] last week. No cramping, No bleeding, No pressure. + FM, No LOF,RTC in 2 weeks for GTT/CBC/Tdap Flowsheet Date 11/22/2018 Holloway Score Blood Edema Fundus Height Fundus Units Glucose Ketones Leukocytes Nitrite Labor Signs Protein Cervic Dilation Cervic Effacement Cervic Station trace none 23 cm none negative Other (see comments ) neg 0cm 0% Type Weight in lbs Pre/Post Dialysis Refused With clothes 194.431908866750 BP Diastolic BP Location Tested BP Systolic BP Type 72 118 sitting Fetus Heart Rate Present A 138 Present Fetus Movement A Yes Comments Here with complaints of disc harge. No bleeding, No cramping, No LOF, + FMCerclage placed approx 1 1/2 week ago with [facility]. Has follow up appt scheduled. Check nuswab. Cervix closed/thick/cerclage suture present. Discharge possible reaction to cerclage material. RTC in 2 weeks for GTT/CBC/Tdap. Flowsheet Date 12/02/2018 Holloway Score Blood Edema Fundus Height Fundus Units Glucose Ketones Leukocytes Nitrite Labor Signs Protein Cervic Dilation Cervic Effacement Cervic Station neg none 25 cm none negative Other (see comments ) neg Type Weight in lbs Pre/Post Dialysis Refused With clothes 197.307431889679 BP Diastolic BP Location Tested BP Systolic BP Type 60 120 sitting Fetus Heart Rate Present A 152 Present Fetus Movement A Yes Comments + FM, No LOF, No bleeding, N o cramping, Doing well. Saw [facility] last week.GTT/CBC/RPR today. RTC in 2 weeks. Flowsheet Date 12/21/2018 Holloway Score Blood Edema Fundus Height Fundus Units Glucose Ketones Leukocytes Nitrite Labor Signs Protein Cervic Dilation Cervic Effacement Cervic Station neg none 27 cm none negative Other (see comments ) neg Type Weight in lbs Pre/Post Dialysis Refused Weight 205.796262448392 BP Diastolic BP Location Tested BP Systolic BP Type 70 114 sitting Fetus Heart Rate Present A 144 Present Fetus Movement A Yes Comments + FM, No LOF, No bleeding, N o cramping. Normal GTT. RTC in 2 weeks. Flowsheet Date 12/30/2018 Holloway Score Blood Edema Fundus Height Fundus Units Glucose Ketones Leukocytes Nitrite Labor Signs Protein Cervic Dilation Cervic Effacement Cervic Station neg none 28 cm none negative Other (see comments ) neg Type Weight in lbs Pre/Post Dialysis Refused With clothes 208.045408595385 BP Diastolic BP Location Tested BP Systolic BP Type 74 110 sitting Fetus Heart Rate Present A 145 Present Fetus Movement A Yes Comments + FM, No LOF, No bleeding, N o cramping. Discussed the flu shot, patient undecided. RTC in 2 weeks. Flowsheet Date 01/25/2019 Holloway Score Blood Edema Fundus Height Fundus Units Glucose Ketones Leukocytes Nitrite Labor Signs Protein Cervic Dilation Cervic Effacement Cervic Station neg none 33 cm none negative Other (see comments ) neg Type Weight in lbs Pre/Post Dialysis Refused Weight 212.16538430328 BP Diastolic BP Location Tested BP Systolic BP Type 70 98 sitting Fetus Heart Rate Present A 152 Present Fetus Movement A Yes Comments + FM, No LOF, No bleeding,, No cramping. No further [facility] appointments scheduled. RTC in 2 weeks Flowsheet Date 02/08/2019 Holloway Score Blood Edema Fundus Height Fundus Units Glucose Ketones Leukocytes Nitrite Labor Signs Protein Cervic Dilation Cervic Effacement Cervic Station neg none 34 cm none negative Other (see comments ) Type Weight in lbs Pre/Post Dialysis Refused With clothes 218.798242889153 BP Diastolic BP Location Tested BP Systolic BP Type 60 122 sitting Fetus Heart Rate Present A 131 Present Fetus Movement Comments + FM, No LOF, No bleeding, N o cramping.Continue cerclage, RTC in 2 weeks for 36w labs and cerclage removal. Flowsheet Date 02/22/2019 Holloway Score Blood Edema Fundus Height Fundus Units Glucose Ketones Leukocytes Nitrite Labor Signs Protein Cervic Dilation Cervic Effacement Cervic Station neg none 36 cm none negative Other (see comments ) neg 0cm 0% Type Weight in lbs Pre/Post Dialysis Refused Weight 221.158127196254 BP Diastolic BP Location Tested BP Systolic BP Type 60 100 sitting Fetus Heart Rate Present A 142 Present Fetus Movement A Yes Comments + FM, No LOF, No bleeding, N o cramping.36w labs today. Cerclage visible. RTC for cerclage removal in 1 week. Flowsheet Date 03/01/2019 Holloway Score Blood Edema Fundus Height Fundus Units Glucose Ketones Leukocytes Nitrite Labor Signs Protein Cervic Dilation Cervic Effacement Cervic Station neg none 37 cm none negative Other (see comments ) neg 1cm Type Weight in lbs Pre/Post Dialysis Refused Weight 226.400757054520 BP Diastolic BP Location Tested BP Systolic BP Type 62 112 sitting Fetus Heart Rate Present A 128 Present Fetus Movement A Yes Comments + FM, No LOF, No bleeding, N o cramping.Attempted removal of cerclage. Portion of cerclage with knots removed. Portion of cerclage remained intact. Will schedule for complete removal in OR under sedation. RTC in 1 week. Flowsheet Date 03/15/2019 Holloway Score Blood Edema Fundus Height Fundus Units Glucose Ketones Leukocytes Nitrite Labor Signs Protein Cervic Dilation Cervic Effacement Cervic Station Type Weight in lbs Pre/Post Dialysis Refused Weight 212.84129160580 BP Diastolic BP Location Tested BP Systolic BP Type Fetus Heart Rate Present Fetus Movement Comments Menstrual History Last Menstrual Date Menses Monthly On Bcp Conception Prior Menses Frequency Hcg Plus Date Menarche Onset Age 0306/13/2018 true false 06/13/2018 28 09/08/19 1 9 13 Genetic Screening And Infection History Question Response Note Patient's Age Will Be 35 Yea rs Or Older At Estimated Date of Delivery false Thalassemia (Croatian, Lithuanian, Mediterranean, Or Background): MCV < 80 false Neural Tube Defect (Meningom yelocele, Spina Bifida, Or Anencephaly) false Congenital Heart Defect false Down Syndrome false Jorge-Sachs (eg, Worship, Cajun, Citizen Of [place]) f alse Kiran Disease false Sickle Cell Disease Or Trait () false Hemophilia Or Other Blood Disorders false Muscular Dystrophy false Cystic Fibrosis false Sierra's Chorea false Mental Retardation/Autism false If Yes, Was Person Tested For Fragile X? false Other Inherited Genetic Or Chromosomal Disorder false Maternal Metabolic Disorder (eg, Type 1 Diabetes , PKU) false Patient Or Baby's Father Had A Child With Defects Not Listed Above false Recurrent Loss, Or A Stillbirth true Medications (including Suppl ements, Vitamins, Herbs, OTC Drugs), Illicit/Recreational Drugs, Alcohol true ETOH, colin abis If Yes, Agent(s) And Strength/Dosage false Any Other Genetic History false Live With Someone With TB Or Exposed To TB false Patient Or Partner Has History Of Genital Herpes false Rash Or Viral Illness Since Last Menstrual Perio d false History Of STD, Gonorrhea, Chlamydia, HPV, Syphi lis false Other Infection History false History of HIV false History of Hepatitis false Prior GBS-infected child false Delivery Information Delivery Date Delivery Type Labor Anesthesia Weeks Gestation Incision Type Labor Labor Length Hrs Delivered By Post Complications Tubal Sterilization Discharge Date Comments 9 [facility] [address] Valeria Ontiveros None false 03/10/2019 Discharge Information Feeding Method Contraceptive Method Maternal HG B and HCT Levels Combination NO BC Ob Episode Information Episode Created Date Number of Fetuses Patient Bloodtype Patient rh Status Prepregnancy Weight lbs Domestic Partner Domestic Partner Phone Father Name Econometrician Status 07/30/19 16 1 200 Zhannat puma [place] CLOSED Fetus Data First Name Last Name Admitted to NICU Weight (g) Sex Living Outcome Pediatric Complications Fetus ID Race Codes Race Delivery Type Demise [id number] Vaginal Problems Problem Notes Problem Name Start Date End Date Resolution Snomed Code Not e Urinary tract infection in [address]80866111 Genital herpes simplex 6245704 6 Jordan Calculation Initial Jordan Date Initial Exam Date Initial Exam Provider Initial Ultrasound Date Last Menstrual Period Date Ultra Sound Weeks Gestation 01/08/2016 07/30/2015 [email or web address] 07/31/2015 05/07/2015 17 Eighteen To Twenty Week Jordan Update Ultra Sound Date Fundal Height At Umbil Quickening Date Ultra Sound Latest Weeks Gestation Final Jordan Confirmed By Final Jordan Confirmed Date Final Jordan Date Ultra Sound Latest Days Gestation 0 08/05/2015 01/08/20 16 0 Pre-ge Flowsheet Flowsheet Date 07/30/2015 Holloway Score Blood Edema Fundus Height Fundus Units Glucose Ketones Leukocytes Nitrite Labor Signs Protein Cervic Dilation Cervic Effacement Cervic Station 13 cm none 0cm 0% -4 Type Weight in lbs Pre/Post Dialysis Refused 213.095731674057 BP Diastolic BP Location Tested BP Systolic BP Type 80 110 sitting Fetus Heart Rate Present A 145 Present Fetus Movement A Yes Comments Nausea resolved. No complain ts. + FM, No LOF, No bleeding. Completed antibiotics for uti. labs today. US, Dental referral and proof of . Menstrual History Last Menstrual Date Menses Monthly On Bcp Conception Prior Menses Frequency Hcg Plus Date Menarche Onset Age 0205/07/2015 true false 28 15 Genetic Screening And Infection History Question Response Note Patient's Age Will Be 35 Years Or Older At Estim ated Date of Delivery false Thalassemia (Croatian, Lithuanian, Mediterranean, Or Background): MCV < 80 false Neural Tube Defect (Meningomyelocele, Spina Bifi da, Or Anencephaly) false Congenital Heart Defect false Down Syndrome false Jorge-Sachs (eg, Worship, Cajun, Citizen Of [place]) f alse Kiran Disease false Sickle Cell Disease Or Trait () false Hemophilia Or Other Blood Disorders false Muscular Dystrophy false Cystic Fibrosis false Eduardo's Chorea false Mental Retardation/Autism false If Yes, Was Person Tested For Fragile X? false Other Inherited Genetic Or Chromosomal Disorder false Maternal Metabolic Disorder (eg, Type 1 Diabetes , PKU) true cousin Patient Or Baby's Father Had A Child With Defects Not Listed Above false Recurrent Loss, Or A Stillbirth false Medications (including Suppl ements, Vitamins, Herbs, OTC Drugs), Illicit/Recreational Drugs, Alcohol false If Yes, Agent(s) And Strength/Dosage false Any Other Genetic History false Live With Someone With TB Or Exposed To TB false Patient Or Partner Has History Of Genital Herpes false Rash Or Viral Illness Since Last Menstrual Perio d false History Of STD, Gonorrhea, Chlamydia, HPV, Syphi lis false Other Infection History false Delivery Information Delivery Date Delivery Type Labor Anesthesia Weeks Gestation Incision Type Labor Labor Length Hrs Delivered By Post Complications Tubal Sterilization Discharge Date Comments 6 Sponta neous 21.6 demise came in and spontaneo usly deliver baby in toliet Discharge Information Feeding Method Contraceptive Method Maternal HG B and HCT Levels
--- OUTSIDE RECORDS SUMMARY | 2024-10-01 12:05 | XMS_ITS | Clinical Summary ---
Author Organization [place] [id number] [facility] Address [address] [place] [address] Care Team Providers Care Nutrition Intern Name Role Phone No, Physician Primary Care Provider [phone] Allergies No known active allergies Medications acyclovir (ZOVIRAX) 400 mg tablet Take 1 tablet (400 mg total) by mouth 2 (two) times a day Active ferrous sulfate 325 mg (65 mg of elemental iron) tablet Active 43-kpcc-scdrqi 6-dha 30 mg iron-1mg -200 mg capsule [...] week loss G1 Short cervix affecting 11/10/2018 Surgical History Surgery Date Site/Laterality Comments SECTION CERCLAGE CERVIX Medical History Medical History Date Comments Cervical incompetence 04/13/2024 16 week lo ss G1 Marijuana user 04/20/2024 +UDS on NOB labs , cessation reviewed. Short cervix affecting 11/10/2018 Social History Tobacco [...] on file Legal Sex Female 11:34 AM CASINO BEVERAGE SERVER Gender Identity Not on file Sexual Orientation Not on file Obstetrics History Last Filed Vital Signs Vital Sign Reading Time Taken Comments Blood Pressure 116/84 04/27/2024 2:15 PM CASINO BEVERAGE SERVER Pulse 75 04/27/2024 2:15 PM CASINO BEVERAGE SERVER Temperature 36.4 C (97.5 F) 04/27/2024 10:55 AM CASINO BEVERAGE SERVER Respiratory Rate 16 04/27/2024 2:15 PM CASINO BEVERAGE SERVER Oxygen Saturation 100% 04/27/2024 2:15 PM CASINO BEVERAGE SERVER Inhaled Oxygen Concentration - - Weight 99.9 kg (220 lb 3.2 oz) 04/27/2024 7:18 A M CASINO BEVERAGE SERVER Height 154.9 cm (5' 1) 04/27/2024 7:18 AM CASINO BEVERAGE SERVER Body Mass Index 41.61 04/27/2024 7:18 AM CASINO BEVERAGE SERVER Plan of Treatment Health Maintenance Due Date Last Done Comments Cervical Cancer Screening 1995 Depression Screening 1995 Hepatitis C Screening 1995 DTaP/Tdap/Td Vaccine (1 - Tdap) 12/06/2006 Varicella Vaccines (1 of 2 - 13+ 2-dose series) 12/06/2008 Hepatitis B Screening 12/06/2013 Regular Well Visit/Exam 18-64 12/06/2013 Influenza Vaccine (Season Ended) 2024 HPV Vaccines Aged Out No longer eligi ble based on patient's age to complete this topic Pneumococcal vaccine <65 Aged Out No longer eligible based on patient's age to complete this topic Insurance [facility] Advance Directives For more information, please contact: [phone] * Full Code (Latest Code Status on File) Date Activated Date Inactivated Comments 04/27/2024 10:07 AM 04/27/2024 9:25 PM Care Teams Nutrition Intern Relationship Specialty Start Date End Date No, Physician PCP - General 07/14/24
--- OUTSIDE RECORDS SUMMARY | 2024-10-01 12:05 | XMS_ITS | Encounter Summary ---
Author Organization [facility] Address [address] [place] [address] Care Team Providers Care Flight Test Mechanic Name Role Phone Ethan Petty PA-C Primary Care Provider Reason for Visit * Reason Onset Date Comments Appointment 04/18/2021 Encounter Details Date Type Department Care Team (Late st Contact Info) Description 04/18/2021 Telephone [facility] [address] [place], [place] [id number] Chao Chandler MD [address] [address] Appointment Social History Tobacco Use Types Packs/Day Years [...] Recorded PHQ2 TOTAL SCORE 0 08/17/2020 Comments Yes Sex and Gender Information Value Date Recorded Sex Assigned at Not on file Legal Sex Female 5:39 AM RATER ASSOCIATE Gender Identity Not on file Sexual Orientation [...] encounter Miscellaneous Notes * Telephone Encounter - Doris Moralez - 04/18/2021 1:39 PM CST Pt called to reschedule [facility] appt. Pt can be reached at [phone]. R ASSOCIATE documented in this encounter Plan of Treatment Upcoming Encounters Date Type Department Care Team (Late st Contact Info) Description 10/05/2024 9:00 AM CDT Hospital Encounter [facility] Maternal & Care [address] [place] [address] Donny Mcadams MD [address] [facility] [address] [place] [address] 10/19/2024 10:30 AM CDT Appointment [facility] Maternal & Care [address] [place] [address] 10/19/2024 11:15 AM CDT Appointment [facility] Maternal & Care [address] [place] [address] 10/26/2024 10:30 AM CDT Appointment [facility] & Care [address] [place] [address] 10/26/2024 11:15 AM CDT Appointment [facility] Maternal & Care [address] [place] [address] 11/02/2024 10:30 AM CDT Appointment [facility] Maternal & Care [address] [place] [address] 11/02/2024 11:15 AM CDT Appointment [facility] Maternal & Care [address] [place] [address] 11/09/2024 9:00 AM CDT Appointment [facility] Maternal & Care [address] [place] [address] 11/09/2024 9:45 AM CDT Appointment [facility] & Care [address] [place] [address] 11/16/2024 9:00 AM CDT Appointment [facility] Care [address] [place] [address] 11/16/2024 9:45 AM CDT Appointment [facility] Maternal & Care [address] [place] [address] documented as of this encounter Visit Diagnoses Not on filedocumented in this encounter Care Teams Flight Test Mechanic Relationship Specialty Start Date End Date Ethan Petty PA-C [address] [address] PCP - General 08/02/20 documented as of this encounter
--- OUTSIDE RECORDS SUMMARY | 2024-10-01 12:05 | XMS_ITS | Clinical Summary ---
Author Organization [facility] Address [address] [place] [address] Care Team Providers Care Embedded Linux Developer Name Role Phone Ethan Petty PA-C Primary Care Provider Source Comments [facility],non-owned Affiliates and Associated Physician Practices is amultiple site organization consisting of ambulatory clinics and hospital sitesin [place], [place], [place] and [place]. This disclosure is being madepursuant to the Care Everywhere program and may not contain all information available regarding this patient. Last updated 17.[facility] Allergies No known active allergies Medications * Be aware that medications may not be up to date on this document. Alwaysverify current medications with the patient. valACYclovir (VALTREX) 500 MG tablet Take 500 mg by mouth 2 times daily Active Macrobid 100 MG capsule Take 1 capsule every 12 hours by oral route for 7 days. 08/04/2024 Active Progesterone 200 MG capsule TAKE 1 CAPSULE BY MOUTH EVERY DAY AT BEDTIME Active Vit-Fe Fumarate-FA ( vitamin) 27-0.8 MG tablet Take 1 (one) tablet by mouth once daily 07/08/2024 Active aspirin EC (Ecotrin) 81 MG tablet Take 1 (one) tablet by mouth once daily Active metroNIDAZOLE (Flagyl) 500 MG tablet Take 1 tablet twice a day by oral route for 7 days. 08/04/2024 Active Active Problems Problem Noted Date Diagnosed Date Previous delivery, antepartum condition or complication 08/10/2024 Overview (08/10/2024): Patient interested in TOLAC, but has not ruled out scheduled section at this time. The primary risk with TOLAC is risk of uterine rupture. Current literature estimates this risk ~ 0.5-1.0% for one LTCS, and roughly double that for 2 prior LTCS. Discussed the seriousness of this emergency due to increased morbidity for both mother and baby, particularly if blood supply to the placenta is compromised. Discussed outcomes comparing scheduled repeat CD vs repeat CD after unsuccessful TOLAC vs , including higher blood loss, increased need for blood transfusion, and higher infection rates. Based upon non-recurring indications and data on staton after one , the success rate is stated at 60-80%. The [facility] Network calculator for this patient estimates her success rate at 41%. Discussed this decision is never set in stone and she could change her mind regarding mode of delivery at any point in her . Recommend: Discussion with patient if TOLAC can be offered at your institution. If TOLAC is not offered at your institution, we would be happy to facilitate a transfer of care later in for TOLAC planning purposes at [place]. Obesity affecting 08/10/2024 Overview (08/10/2024): Obesity in is associated with increased risk of several adverse maternal and / outcomes. Fetuses exposed to obesity in are at increased risk of loss (both early miscarriage and stillbirth risks are increased), congenital anomalies (particularly cardiac and neural tube defects), , postterm , growth disorders (most commonly LGA/macrosomia), gestational diabetes, and gestational hypertension/preeclampsia. Mothers are at increased risk of anemia, GDM, hypertensive disorders, and maternal morbidity/mortality. Obese patients are more likely to have adverse events surrounding delivery including need for section, anesthesia complications, failed TOLAC, hemorrhage, infections, and VTE. Obese patients are also more likely to have failed cfDNA screening and detection of congenital anomalies can be limited. Recommendations: Limit weight gain to 11-20 pounds Continue LD ASA for preeclampsia prevention Early 1h GTT 77, Repeat GTT 24-28w Recommend serial growth assessments in the 2nd and 3rd trimester Start weekly testing at 36 weeks --(ACOG recommends starting at 37w for prepregnancy BMI of 35 or greater and 34w for prepregnancy BMI 40 or greater. Our policy is to start all obese patients with prepregnancy BMI 35 or greater at 36 weeks.) Recommend anesthesia consultation at delivering hospital If patient requires section, a higher dose of preoperative antibiotics may be needed. (3g Ancef for weight >120kg) Recommend prophylactic anticoagulation while inpatient and for up to 6 weeks in highest risk individuals ( section, BMI >40, immobility, infection, etc.) Encounter for maternal care for suspected poor growth in staton in second trimester 08/10/2024 Overview (08/10/2024): Most recent US with referring provider concerning for growth restriction. Patient also reports her child who delivered in 2019 was 5lbs 6oz at term which is considered SGA/LBW. NIPT this low risk for aneuploidy. Reviewed dating. LMP stated as 01/28/24, but patient is unsure because she also noted bleeding that started a few days later on 02/03. She states it was light, but did last for 3-5 days. Based on 01/27, the SHAYAN would be 11/03/24. Early ultrasounds with outside provider indicate dating was changed to reflect a 9w1d US giving an SHAYAN of 11/10/24. Follow up scans at 10 and 21 weeks were both consistent with that 9w US. Today's ultrasound is also consistent with an SHAYAN of 11/10/2024. Due to unsure LMP and consistent growth assessments since that time, will assign SHAYAN of 11/10/2024. Recommendations: Continue serial ultrasound for growth assessment due to unsure dating and prior SGA . No need for testing or dopplers based on dating change and EFW today, will reassess on later ultrasounds Cervical cerclage suture present in third trimes ter 03/03/2019 Premature cervical dilation in second trimester 11/12/2018 Short cervix affecting 11/10/2018 Second 09/23/2018 Hx of delivery, curr ently , unspecified trimester 09/23/2018 Cervical insufficiency in , antepartum 09/23/2018 Overview (08/10/2024): G1 complicated by 21w delivery. G3 had funneling on US noted, admitted for cerclage, but EUA showed cervical insufficiency with previable dilation. Ultimately, exam-indicated cerclage placed and then removed at appropriate time in . Patient had section for delivery of that . In this , a history-indicated cerclage was placed by the referring provider. Recommendations: Removal of the cerclage should occur at 36-37w to allow for natural labor to occur after that time. If section is planned, removal can occur at the time of . Consider removal for any labor symptoms and/or prelabor rupture of membranes Estimated Date of Delivery Comme nts Yes 11/10/2024 Based on Ultraso und Resolved Problems Problem Noted Date Diagnosed Date Resolved Date Uncomplicated asthma 09/23/2018 021 Overview (09/23/2018): As a child Encounters Date Type Department Care Team Description 09/07/2024 9:00 AM CDT - 09/07/2024 11:59 PM CDT Hospital Encounter [facility] Maternal & Care [address] [place] [address] Ronen Milan MD Wendel, Michael, MD SENIOR INFORMATION SYSTEMS ARCHITECT Discharge Disposition: Home or Self Care 08/10/2024 8:14 AM CDT - 08/10/2024 11:59 PM CDT Hospital Encounter [facility] Maternal & Care [address] [place] [address] Donny Mcadams MD Discharge Disposition: Home or Self Care 08/10/2024 8:13 AM CDT Hospital Encounter [facility] Maternal & Care [address] [place] [address] Etienne Skinner MD Wendel, Michael, MD Discharge Disposition: Home or Self Care from Last 3 Months Family History Medical History Relation Name Comments Asthma Brother 1 Other Father Murdered Cancer - Lung Maternal Grandfather Diabetes - Type 2 Maternal Grandfather Alzheimer's Disease Maternal Grandmother Arthritis - Rheumatoid Mother Relation Name Status Comments Brother 1 Alive Brother 2 Alive Father Maternal Grandfather Maternal Grandmother Alive Mother Alive Paternal Grandfather Alive Paternal Grandmother Alive Sister 1 Alive Sister 2 Alive Sister 3 Alive Social History Tobacco Use Types Packs/Day Years Used Date Smoking Tobacco: Never Smokeless Tobacco: Never Tobacco Cessation:Counseling Given: Yes Alcohol Use Standard Drinks/Week Comments Yes 0 [...] Date Recorded PHQ2 TOTAL SCORE 0 08/17/2020 Estimated Date of Delivery Comme nts Yes 11/10/2024 Based on Ultraso und Sex and Gender Information Value Date Recorded Sex Assigned at Not on file Legal Sex Female 5:39 AM MEDICAL STAFF SERVICES COORDINATOR Gender Identity Not on file Sexual Orientation Not on file Last Filed Vital Signs Vital Sign Reading Time Taken Comments Blood Pressure 115/69 08/10/2024 9:27 AM CDT Pulse 83 08/10/2024 9:27 AM CDT Temperature 36.7 C (98.1 F) 03/18/2021 10:58 AM MEDICAL STAFF SERVICES COORDINATOR Respiratory Rate 17 03/03/2019 4:00 PM MEDICAL STAFF SERVICES COORDINATOR Oxygen Saturation 98% 03/18/2021 10:58 AM MEDICAL STAFF SERVICES COORDINATOR Inhaled Oxygen Concentration - - Weight 109.3 kg (241 lb) 08/10/2024 9:27 AM CDT Height 157.5 cm (5' 2) 08/10/2024 9:27 AM CDT Body Mass Index 44.08 08/10/2024 9:27 AM CDT Plan of Treatment Upcoming Encounters Date Type Department Care Team (Late st Contact Info) Description 10/05/2024 9:00 AM CDT Hospital Encounter [facility] Maternal & Care [address] [place] [address] Donny Mcadams MD [address] [facility] [address] [place] [phone] 10/19/2024 10:30 AM CDT Appointment [facility] Maternal & Care [address] [place] [address] 10/19/2024 11:15 AM CDT Appointment [facility] Maternal & Care [address] [place] [address] 10/26/2024 10:30 AM CDT [facility] [address] [place] [address] 10/26/2024 11:15 AM CDT Appointment [facility] Maternal & Care [address] [place] [address] 11/02/2024 10:30 AM CDT Appointment [facility] Maternal & Care [address] [place] [address] 11/02/2024 11:15 AM CDT Appointment [facility] Maternal & Care [address] [place] [address] 11/09/2024 9:00 AM CDT Appointment [facility] Health Maternal & Care [address] [place] [address] 11/09/2024 9:45 AM CDT Appointment [facility] Maternal & Care [address] [place] [address] 11/16/2024 9:00 AM CDT Appointment [facility] Maternal & Care [address] [place] [address] 11/16/2024 9:45 AM CDT Appointment [facility] Maternal & Care [address] [place] [address] Health Maintenance Due Date Last Done Comments HIV SCREENING 12/06/2010 HEPATITIS C SCREENING 12/02/2013 DTAP/TDAP/TD VACCINES (1 - Tdap) 12/06/2014 HEPATITIS B VACCINE (1 of 3 - 19+ 3-dose series) 12/06/2014 PAP SMEAR 07/28/2021 07/28/2018 (Done Outside Per Patient) COVID-19 VACCINE (1 - 2023-2 5 season) 2023 DEPRESSION SCREENING 03/30/2024 OB-ONE HOUR GLUCOSE 08/04/2024 OB-TDAP CURRENT 08/11/2024 2006 OB-GROUP B STREP SCREEN 10/06/2024 11/10/2018 INFLUENZA VACCINE (#1) 2024 02/25/2012 ZOSTER VACCINE (1 of 2) 12/06/2045 HIB VACCINE Aged Out No longer eligi ble based on patient's age to complete this topic HPV VACCINE Aged Out No longer eligi ble based on patient's age to complete this topic MENINGOCOCCAL (Group B) VACCINE SHARED DECISION-MAKING Aged Out No longer eligible based on patient's age to complete this topic MENINGOCOCCAL GROUPS A/C/Y/W VACCINE Aged Out No longer eligible based on patient's age to complete this topic PNEUMOCOCCAL VACCINE Aged Out No long er eligible based on patient's age to complete this topic Respiratory Syncytial Virus (RSV) Vaccine Pt: or over 60 yrs (No Doses Required) Completed Procedures Procedure Name Priority Date/Time Associated Diagnosis Comments SONOGRAM - COMPLETE Routine 09/07/2024 9:19 AM CDT Cervical insufficiency in , antepartum ([facility]) Previous delivery, antepartum condition or complication ([facility]) Encounter for maternal care for suspected poor growth in staton in second trimester ([facility]) Supervision of high risk in third trimester ([facility]) growth restriction antepartum ([facility]) History of cerclage, currently ([facility]) 30 weeks gestation of ([facility]) SONOGRAM - COMPLETE Routine 08/10/2024 8:43 AM CDT 27 weeks gestation of ([facility]) History of cerclage, currently ([facility]) Supervision of high risk in third trimester ([facility]) growth restriction antepartum ([facility]) CULTURE STREP B STAT 11/10/2018 4:37 PM CDT Short cervix affecting from Last 3 Months or Most Recently Relevant to Health Maintenance Results * SONOGRAM - COMPLETE (09/07/2024 9:19 AM CDT) Only the most recent of2 resultswithin the time period is included. Linked Results Indication ======== IUGR on outside ultrasound, Current Cerclage, History of SGA History ====== OB History 5. Para 1 [id number] 1. miscarriage 2016. Details: 1st trimester, no D and C 2. live 2018. Details: delivery, Full-term, SGA, Cerclage, Meconium 3. elective termination 2021. Details: 1st trimester 4. elective termination 2022. Details: 1st trimester Lab Tests Test Date Result NIPT Low risk, Female Maternal Assessment Physical Exam Height 157 cm, 5 ft 2 in. Weight 111 kg, 245 lb. Initial weight 99 kg, 219 lb. BMI 44.81 kg/m . Initial BMI 40.06 kg/m . Weight gain 12 kg, 26 lb Method ====== Transabdominal ultrasound. View: Suboptimal view: limited by position. Suboptimal view: limited by maternal body habitus ========= Staton . Number of fetuses: 1 Dating ====== Date Details Gest. age SHAYAN LMP 01/28/2024 31 w + 6 d 11/03/2024 Stated SHAYAN 30 w + 6 d 11/10/2024 Previous U/S 04/08/2024 GA, GA 9 w + 1 d 30 w + 6 d 11/10/2024 U/S 09/07/2024 based upon AC, BPD, Femur, HC 29 w + 6 d 11/17/2024 Assigned dating based on ultrasound (GA), selected on 08/10/2024 30 w + 6 d 11/10/2024 General Evaluation Cardiac activity present. FHR 136 bpm. movements: visualized. Presentation: cephalic Placenta: Placental site: anterior Umbilical cord: Cord vessels: 3 vessel cord. Insertion site: normal insertion Amniotic fluid: Amount of AF: normal. MVP 4.7 cm. SERVANDO 14.0 cm. Q1 4.7 cm, Q2 3.1 cm, Q3 3.5 cm, Q4 2.8 cm Biometry BPD 72.0 mm 28w 6d 3% Hadlock HC 273.5 mm 29w 6d 3% Hadlock AC 251.7 mm 29w 3d 10% Hadlock Femur 59.4 mm 31w 0d 38% Hadlock Humerus 54.6 mm 31w 5d 77% [place]nn HC / AC 1.09 Weight Calculation: EFW 1,475 g 14% Hadlock EFW (lb,oz) 3 lb 4 oz EFW by Hadlock ([id number]) appropriate Growth Overview Exam date GA BPD (mm) HC (mm) AC (mm) FL (mm) HL (mm) EFW (g) 08/10/2024 26w 6d 64.3 14% 233.7 2% 213.9 16% 50.4 41% 47 70% 914 19% 09/07/2024 30w 6d 72 3% 273.5 3% 251.7 10% 59.4 38% 54.6 77% 1475 14% Anatomy The following structures appear normal: Face Lips. Extremities / Skeleton Legs. Feet. The following structures could not be adequately visualized: Abdomen Cord insertion. Genitals. Spine Cervical spine. Thoracic spine. Lumbar spine. Sacral spine. Extremities / Skeleton Hands. The following structures were documented previously: Head / Neck Cranium. Lateral ventricles. Choroid plexus. Midline falx. Cavum septi pellucidi. Cerebellum. Cisterna magna. Thalami. Nuchal fold. Face Profile. Nose. Nasal bone. Orbits. Heart / Thorax 4-chamber view. RVOT view. LVOT view. 3-vessel view. 3-wxcnlz-ddaxfbm view. Situs. Aortic arch view. Bicaval view. Ductal arch view. Great vessels. Right lung. Left lung. Diaphragm. Abdomen Stomach. Kidneys. Bladder. Bowel. Extremities / Skeleton Arms. Doppler Umbilical Artery: normal PI 1.13 83% Shanell S / D 3.21 72% Shanell Impression ========= Single live intrauterine at 30w 6d in cephalic presentation Fetus measures 29w 4d which is appropriate for established gestational age (EFW 14%, AC 10%) The amniotic fluid volume measurement normal No major malformations or aneuploidy markers were seen within the limitations of ultrasound. Comment ======== ultrasound alone cannot detect all structural, genetic, or functional , placental, or maternal abnormalities Follow-up ======== Follow up in 4 weeks to reassess growth Coding ====== Procedures [id number]: US Preg Uterus Follow Up [facility] PACS Anatomical Region Laterality Modality Other 09/07/2024 9:19 AM CDT Donny Norton MD [facility] ORDERABLES Edited Resul t - Final * CULTURE STREP B (11/10/2018 4:37 PM CDT) Culture Strep B Negative for beta-hemolytic Streptococcus Group B MATEUSZ 11/13/2018 6:18 PM CDT [facility]CRO[facility]OLOG[facility] Microbiology MISCELLANEOUS SAMPLES / Unknown Collection / Unknown 11/10/2018 4:37 PM CDT 11/10/2018 4:52 PM CDT Mary Jones MD LAB - MICROBIOLOGY ORDERABLE S Final Result [facility] [address] [place] [address], [facility] [phone] from Last 3 Months or Most Recently Relevant to Health Maintenance Insurance [facility] Member Subscriber Plan / Payer (Ef fective 2024-Present) Name:Dora Beauchamp Member ID:Not on file Relation to Subscriber:Self Name:Dora Beauchamp Payer ID:[id number] (NAIC) Group ID:Not on file Type:Medicaid Managed Care Address: ATTN CLAIMS DEPARTMENT [address] [address] [facility] Member Subscriber Plan / Payer ( fective 2024-Present) Name:Dora Beauchamp Member ID:Not on file Relation to Subscriber:Self Name:Dora Beauchamp Payer ID:[id number] (NAIC) Group ID:Not on file Type:Medicaid Managed Care Address: ATTN CLAIMS DEPARTMENT [address] [address] Advance Directives * Full Code (Latest Code Status on File) Date Activated Date Inactivated Comments 11/11/2018 12:46 AM 11/12/2018 8:02 PM * Full Code Date Activated Date Inactivated Comments 11/10/2018 1:53 PM 11/11/2018 12:46 AM Care Teams Embedded Linux Developer Relationship Specialty Start Date End Date Ethan Petty PA-C [address] [facility] [address] [place] [id number] PCP - General 08/02/20
[2024-10-01] MEDS: LACTATED RINGERS 1,000 ML 125 ML IV CONT ×2 (12:24→16:24)
--- NOTE | 2024-10-01 12:28 | P.HP_ITS ---
H&P: HPI History of Present Illness Date/Time: 10/01/24 12:28 Chief Complaint: Pain Narrative: 28 y/o at 34 weeks with an EDC of 11/10/24. presented via ambulance with complaints of pain which started that morning. Denies vaginal bleeding. She last felt movement this am. Blood pressures elevated in ambulance. Denied headache or visual changes. Denies h/o htn. Denies tobacco use, had marijuana use. Denies trauma. PNC significant for h/o cervical incompetence, she had cerclage placed during this . H/o prior section for possible distress. Formal ultrasound on L and D showed no cardiac activity and large hematoma. A second ultrasound performed by me confirmed no cardiac activity. Large hematoma fundal by placenta. Review of Systems Review of Systems: All systems reviewed & are unremarkable except as noted in HPI and below Constitutional: Constitutional: Reports no additional constitutional complaints and Denies headache(s) Eyes: Eyes: Denies spots in vision ENT: Reports system reviewed and no additional complaints, except as documented and Denies headache(s) Cardiovascular: Cardiovascular: Denies chest pain and Denies dyspnea Respiratory: Respiratory: Denies dyspnea Gastrointestinal: Gastrointestinal: Reports no additional gastrointestinal complaints Genitourinary: Genitourinary: Reports amenorrhea Musculoskeletal: Musculoskeletal: Reports no additional musculoskeletal complaints Integumentary/Breasts: Skin/Breast: Denies breast mass and Denies rash Neurologic: Denies headache(s) Psychiatric: Psychiatric: Reports no additional psychiatric complaints [facility] Social History Social History Smoking status: Never smoker Do You Feel Safe in your Home?: Yes Lack of Transportation: No Lack of Food: Sometimes True Current Housing: I Have Housing Concerned About Future Housing: No Difficulty Paying Gas/Electric Bills: No Difficulty Paying for Meds: YES Currently Unemployed: No Education: High School Diploma/GED Difficulty w/ Childcare or Family Care: No Spiritual care concerns: No Meds Home Medications and Allergies Home Medications ?Medication ?Instructions ?Recorded ?Confirmed ?Type vits no.130-ferrous fum 1 tablet PO DAILY 10/01/24 10/01/24 History 27 mg iron-folic acid 800 mcg tablet ( Vitamin) Allergies Allergy/AdvReac Type Severity Reaction Status Date / Time No Known Allergies Allergy Verified 10/01/24 12:40 Exam Const: General: no acute distress Eyes: General: appearance normal, both eyes and all related structures Resp: Effort & Inspection: normal respiratory effort Auscultation: clear to auscultation bilaterally Cardio: Rate: regular rate Rhythm: regular rhythm GI: Other: Gravid no fundal tenderness no right upper quadrant pain Skin: General skin exam: no rashes or lesions noted Neuro: Cognition (Neuro): normal cognition Extrem: General: normal to inspection Psych: Mental Status: mental status grossly normal Assessment and Plan Assessment and plan (1) demise: Status: Acute Assessment and Plan: Suspect abruption as etiology of demise. No active bleeding. Hemodynamicly stable. Discussed need for delivery. Recommend attempt vaginal after section and risk associated with , recommend trial of labor unless signs of heavy bleeding and need to proceed with section. Discussed risk benefits of vaginal after section delivery and risk of section. She agrees with induction of labor. Will obtain abruption and demise labs.
[2024-10-01] MEDS: fentaNYL CITRATE INJ (*CRX) 100 MCG/2 ML VIAL IV PUSH (12:30)
[2024-10-01 13:11] LABS: Fibrinogen 316 mg/dl (215-510)
[2024-10-01 13:13] LABS: INR 1.1; Partial Thromboplastin Time 28.7 Seconds (22.3-36.8); Prothrombin Time 14.0 Seconds (11.1-14.7)
[2024-10-01 13:16] LABS: Hematocrit 33.9 % (37.0-47.0); Hemoglobin 11.4 g/dL (12.0-15.0); Immature Granulocyte Percent A 0.7 % (0-0.5); Lymphocytes Absolute Auto 2.16 K/mm3 (0.9-3.2); Mean Corpuscular HGB Conc 33.6 g/dl (32-36); Mean Corpuscular Hemoglobin 30.8 pg (26-34); Mean Corpuscular Volume 91.6 fl (80-100); Nucleated Red Blood Cells Absolute Auto 0.000 K/mm3 (0.0-0.012); Nucleated Red Blood Cells Perc 0.0 % (0.0-0.2); Platelet Count Result 226 k/mm3 (150-375); Red Blood Count 3.70 M/mm3 (4.2-5.4); White Blood Count 16.7 K/mm3 (4.5-10.0)
[2024-10-01 13:22] LABS: Alanine Aminotransferase 18 U/L (6-35); Albumin Level 3.5 g/dL (3.5-5.1); Alkaline Phosphatase 716 U/L (38-126); Anion Gap 10 mmol/L (4-12); Aspartate Amino Transferase 25 U/L (14-36); Bilirubin,Total 0.4 mg/dL (0.2-1.3); Blood Urea Nitrogen 9 mg/dL (7-17); Calcium 9.1 mg/dL (8.4-10.2); Carbon Dioxide 19 mmol/L (22-30); Chloride 105 mmol/L (98-107); Estimated Glomerular Filt Rate > 60; Glucose 168 mg/dL (65-110); Potassium 3.4 mmol/L (3.4-5.0); Sodium 134 mmol/L (137-145); Total Protein 7.1 g/dL (6.3-8.2)
[2024-10-01 13:28] LABS: Hemoglobin A1C 5.2 % (<5.7)
--- NOTE | 2024-10-01 13:32 | WPDANESEPPF ---
Anes - Initial Pre Proc Eval Date/Time: 10/01/24 13:32 Surgeon: Mike Grey MD Pre Op Diagnosis: labor Patient Data Age: 28 Gender: F Height: Weight: Last Vital Signs Pulse 100 10/01/24 13:30 BP 99/55 L 10/01/24 13:30 Pulse Ox 98 10/01/24 13:31 Allergies Allergy/AdvReac Type Severity Reaction Status Date / Time No Known Allergies Allergy Verified 10/01/24 12:40 Home Medications ?Medication ?Instructions ?Recorded ?Confirmed ?Type vits no.130-ferrous fum 1 tablet PO DAILY 10/01/24 10/01/24 History 27 mg iron-folic acid 800 mcg tablet ( Vitamin) Laboratory Tests 10/01/24 10/01/24 10/01/24 12:21 12:23 12:34 WBC RBC Hgb Hct MCV MCH MCHC RDW Plt Count MPV Immature Gran % (Auto) Neut % (Auto) Lymph % (Auto) [place] % (Auto) Eos % (Auto) Baso % (Auto) Lymph # (Auto) [place] # (Auto) Eos # (Auto) Baso # (Auto) Abs Immat Gran (auto) Absolute Neuts (auto) Absolute Nucleated RBC Nucleated RBC % PT 14.0 Seconds (11.1-14.7) INR 1.1 APTT 28.7 Seconds (22.3-36.8) Fibrinogen 316 mg/dl (215-510) LA PTT Screen Pending LA PTT Comment Pending dRVVT Screen Pending Lupus Anticoag Interp Pending Sodium 134 L mmol/L (137-145) Potassium 3.4 mmol/L (3.4-5.0) Chloride 105 mmol/L (98-107) Carbon Dioxide 19 L mmol/L (22-30) Anion Gap 10 mmol/L (4-12) BUN 9 mg/dL (7-17) Creatinine 0.57 L mg/dL (0.7-1.0) Estim Creat Clear Calc Not Reportable Estimated GFR > 60 (59 - ) Glucose 168 H mg/dL (65-110) Hemoglobin A1c Calcium 9.1 mg/dL (8.4-10.2) Total Bilirubin 0.4 mg/dL (0.2-1.3) AST 25 U/L (14-36) ALT 18 U/L (6-35) Alkaline Phosphatase 716 H U/L (38-126) Total Protein 7.1 g/dL (6.3-8.2) Albumin 3.5 g/dL (3.5-5.1) TSH Pending Free T4 Beta-2-GPI IgG Ab Pending Beta-2-GPI IgA Ab Pending Beta-2-GPI IgM Ab Pending Phosphatidylserine Ab Phosphatidylserine IgG Phosphatidylserine IgA Phosphatidylserine IgM Anti-Cardiolipin IgG Ab Pending Anti-Cardiolipin IgA Ab Pending Anti-Cardiolipin IgM Ab Pending CMV IgG Ab Pending CMV IgM Ab Pending Hep Bs Antigen Pending HSV I Specific Ab HSV II Specific Ab HIV 1&2 Ab/P24 Ag 4thGn Pending Parvovirus B19 IgG Intp Pending Parvovirus B19 IgM Intp Pending Rubella IgG Antibody Pending Pending Toxoplasma IgG Ab Pending Toxoplasma IgM Ab Pending Add Miscellaneous Test 10/01/24 10/01/24 10/01/24 12:40 12:41 12:50 WBC 16.7 H K/mm3 (4.5-10.0) RBC 3.70 L M/mm3 (4.2-5.4) Hgb 11.4 L g/dL (12.0-15.0) Hct 33.9 L % (37.0-47.0) MCV 91.6 fl (80-100) MCH 30.8 pg (26-34) MCHC 33.6 g/dl (32-36) RDW 12.3 % (11.5-14.5) Plt Count 226 k/mm3 (150-375) MPV 9.0 fl (7.4-10.4) Immature Gran % (Auto) 0.7 H % (0-0.5) Neut % (Auto) 80.6 H % (45.5-73.1) Lymph % (Auto) 12.9 L % (18.3-44.2) [place] % (Auto) 5.3 % (2.6-8.5) Eos % (Auto) 0.3 % (0-4.4) Baso % (Auto) 0.2 % (0.2-1.2) Lymph # (Auto) 2.16 K/mm3 (0.9-3.2) [place] # (Auto) 0.9 H K/mm3 (0.1-0.6) Eos # (Auto) 0.1 K/mm3 (0-0.3) Baso # (Auto) 0.0 K/mm3 (0.0-0.1) Abs Immat Gran (auto) 0.12 H K/mm3 (0.00-0.031) Absolute Neuts (auto) 13.5 H K/mm3 (1.3-6.7) Absolute Nucleated RBC 0.000 K/mm3 (0.0-0.012) Nucleated RBC % 0.0 % (0.0-0.2) PT INR APTT Fibrinogen LA PTT Screen LA PTT Comment dRVVT Screen Lupus Anticoag Interp Sodium Potassium Chloride Carbon Dioxide Anion Gap BUN Creatinine Estim Creat Clear Calc Estimated GFR Glucose Hemoglobin A1c 5.2 % (<5.7) Calcium Total Bilirubin AST ALT Alkaline Phosphatase Total Protein Albumin TSH Free T4 Pending Beta-2-GPI IgG Ab Pending Beta-2-GPI IgA Ab Pending Beta-2-GPI IgM Ab Pending Phosphatidylserine Ab Pending Phosphatidylserine IgG Pending Phosphatidylserine IgA Pending Phosphatidylserine IgM Pending Anti-Cardiolipin IgG Ab Pending Anti-Cardiolipin IgA Ab Pending Anti-Cardiolipin IgM Ab Pending CMV IgG Ab CMV IgM Ab Hep Bs Antigen HSV I Specific Ab Pending HSV II Specific Ab Pending HIV 1&2 Ab/P24 Ag 4thGn Parvovirus B19 IgG Intp Parvovirus B19 IgM Intp Rubella IgG Antibody Toxoplasma IgG Ab Toxoplasma IgM Ab Add Miscellaneous Test Pending Patient hx anesthesia problems: none Family hx anesthesia problems: none Results Review: All pre-operative results and documents have been reviewed as part of the pre-operative evaluation. Anes - Eval Final PreProcedure Day of Procedure 10/01/24 13:32 Patient weight: morbidly obese Heart: regular rate and rhythm Lungs: clear to auscultation Neurological: alert and oriented ASA classification: III Emergent: no Anesthetic plan: proceed Anesthesia type and monitoring: regional epidural and standard monitoring Results Review: All pre-operative results and documents have been reviewed as part of the pre-operative evaluation. Informed Consent: The patient's anesthetic plan and its attendant risks and benefits were discussed with the patient/family/POA. Questions were solicited and answers provided to the satisfaction of the patient/family/POA.
[2024-10-01 13:38] LABS: Thyroid Stimulating Hormone 0.610 uIU/mL (0.465-4.680)
[2024-10-01 13:39] LABS: Free T4 Free Thyroxine 0.94 ng/dL (0.78-2.19)
[2024-10-01] MEDS: PHENYLEPHRINE 1,000 MCG/10 ML SYRINGE 100 MCG IV PUSH ×6 (13:39→15:50)
[2024-10-01 13:48] LABS: HIV 1/2 Ab P24 Ag Result Negative (Negative)
[2024-10-01 13:51] LABS: Syphilis IgG/IgM Antibody Non-Reactive (Nonreactive)
[2024-10-01] MEDS: LACTATED RINGERS 1,000 ML 999 ML IV CONT (14:00)
[2024-10-01] MEDS: ePHEDrine sulfate INJ 50 MG/ML AMPUL 25 MG IM (14:01)
[2024-10-01 14:11] LABS: Hepatitis B Surface Antigen Negative (Negative)
[2024-10-01 16:51] LABS: Cannabinoid Screen Urine Positive (Negative)
[2024-10-01 17:02] LABS: Hematocrit 34.6 % (37.0-47.0); Hemoglobin 11.5 g/dL (12.0-15.0); Mean Corpuscular HGB Conc 33.2 g/dl (32-36); Mean Corpuscular Hemoglobin 30.9 pg (26-34); Mean Corpuscular Volume 93.0 fl (80-100); Platelet Count Result 187 k/mm3 (150-375); Red Blood Count 3.72 M/mm3 (4.2-5.4); White Blood Count 16.6 K/mm3 (4.5-10.0)
[2024-10-01] MEDS: SODIUM CHLORIDE 0.9% IV 1,000 ML 999 ML IV CONT (17:21)
[2024-10-01] MEDS: OXYTOCIN 30 UNITS/NS 500 ML 30 UNITS/500 ML BAG 999 UNITS IV CONT (18:43)
[2024-10-01] MEDS: METHYLERGONOVINE MALEATE 0.2 MG/ML VIAL IM (18:54)
--- NOTE | 2024-10-01 19:00 | S_PTH ---
PATIENT: Dora Beauchamp LOC: [facility] U#:[id number] AGE/SX: 28/F ROOM: 110 RE10/01/[address]: Mike Grey MD : [id number] BED: 00 DIS: 10/03/2024 SPEC #: [id number] RECD: 10/03/24 10:19 STATUS: MIRANDA REQ #: [id number] CHELA: 10/01/24 19:[address]: Mike Grey DEPT: [facility] Surgical RECD BY: Savanah Maria ENTERED: 10/03/24 10:20 SP TYPE: Surgical OTHR DR: ALUM MIXER PHYSICIAN Silvano Ya MD Tissues: A - Placenta Procedures: Hematoxylin and Eosin Stain Gross and Microscopic Level 5
--- NOTE | 2024-10-01 19:05 | PM.OBPNVD ---
OB - PN: Subj Subjective Date/time seen: 10/01/24 1300 cervix 2/60/-2, AROM clear fluid. No bleeding. [place] ctx q 2. OB - PN: Obj Data Labs 10/01/24 16:36 10/01/24 12:34 Labs: Laboratory Results - last 24 hr 10/01/24 10/01/24 10/01/24 12:21 12:23 12:29 WBC RBC Hgb Hct MCV MCH MCHC RDW Plt Count MPV Immature Gran % (Auto) Neut % (Auto) Lymph % (Auto) [place] % (Auto) Eos % (Auto) Baso % (Auto) Lymph # (Auto) [place] # (Auto) Eos # (Auto) Baso # (Auto) Abs Immat Gran (auto) Absolute Neuts (auto) Absolute Nucleated RBC Nucleated RBC % PT 14.0 INR 1.1 APTT 28.7 Fibrinogen 316 Sodium Potassium Chloride Carbon Dioxide Anion Gap BUN Creatinine Estim Creat Clear Calc Estimated GFR Glucose Hemoglobin A1c Calcium Total Bilirubin AST ALT Alkaline Phosphatase Total Protein Albumin TSH 0.610 Free T4 Urine Opiates Screen Negative Urine Methadone Screen Negative Ur Barbiturates Screen Negative Ur Phencyclidine Scrn Negative Ur Amphetamine Screen Negative U Benzodiazepines Scrn Negative Urine Cocaine Screen Negative U Cannabinoids Screen Positive A Syphilis IgG/IgM Ab Hep Bs Antigen Negative HIV 1&2 Ab/P24 Ag 4thGn Negative Rubella IgG Antibody 7.5 L Blood Type O Positive Antibody Screen Negative KB Hemoglobin 10/01/24 10/01/24 10/01/24 12:34 12:40 12:50 WBC 16.7 H RBC 3.70 L Hgb 11.4 L Hct 33.9 L MCV 91.6 MCH 30.8 MCHC 33.6 RDW 12.3 Plt Count 226 MPV 9.0 Immature Gran % (Auto) 0.7 H Neut % (Auto) 80.6 H Lymph % (Auto) 12.9 L [place] % (Auto) 5.3 Eos % (Auto) 0.3 Baso % (Auto) 0.2 Lymph # (Auto) 2.16 [place] # (Auto) 0.9 H Eos # (Auto) 0.1 Baso # (Auto) 0.0 Abs Immat Gran (auto) 0.12 H Absolute Neuts (auto) 13.5 H Absolute Nucleated RBC 0.000 Nucleated RBC % 0.0 PT INR APTT Fibrinogen Sodium 134 L Potassium 3.4 Chloride 105 Carbon Dioxide 19 L Anion Gap 10 BUN 9 Creatinine 0.57 L Estim Creat Clear Calc Not Reportable Estimated GFR > 60 Glucose 168 H Hemoglobin A1c 5.2 Calcium 9.1 Total Bilirubin 0.4 AST 25 ALT 18 Alkaline Phosphatase 716 H Total Protein 7.1 Albumin 3.5 TSH Free T4 0.94 Urine Opiates Screen Urine Methadone Screen Ur Barbiturates Screen Ur Phencyclidine Scrn Ur Amphetamine Screen U Benzodiazepines Scrn Urine Cocaine Screen U Cannabinoids Screen Syphilis IgG/IgM Ab Non-reactive Hep Bs Antigen HIV 1&2 Ab/P24 Ag 4thGn Rubella IgG Antibody 7.6 L Blood Type Antibody Screen KB Hemoglobin Negative 10/01/24 16:36 WBC 16.6 H RBC 3.72 L Hgb 11.5 L Hct 34.6 L MCV 93.0 MCH 30.9 MCHC 33.2 RDW 12.5 Plt Count 187 MPV 9.0 Immature Gran % (Auto) Neut % (Auto) Lymph % (Auto) [place] % (Auto) Eos % (Auto) Baso % (Auto) Lymph # (Auto) [place] # (Auto) Eos # (Auto) Baso # (Auto) Abs Immat Gran (auto) Absolute Neuts (auto) Absolute Nucleated RBC Nucleated RBC % PT INR APTT Fibrinogen Sodium Potassium Chloride Carbon Dioxide Anion Gap BUN Creatinine Estim Creat Clear Calc Estimated GFR Glucose Hemoglobin A1c Calcium Total Bilirubin AST ALT Alkaline Phosphatase Total Protein Albumin TSH Free T4 Urine Opiates Screen Urine Methadone Screen Ur Barbiturates Screen Ur Phencyclidine Scrn Ur Amphetamine Screen U Benzodiazepines Scrn Urine Cocaine Screen U Cannabinoids Screen Syphilis IgG/IgM Ab Hep Bs Antigen HIV 1&2 Ab/P24 Ag 4thGn Rubella IgG Antibody Blood Type Antibody Screen KB Hemoglobin Imaging Radiologist's impression: Impressions Obstetrics Ultrasound 10/01/24 13:05 IMPRESSION: Grossly enlarged and heterogeneous placenta without cardiac activity on the submitted static or cine images. OB - PN A/P Time Spent With Patient Time: Total time spent is greater than 50% in coordination of care (as documented) at patient's floor/unit and/or counseling patient:
--- NOTE | 2024-10-01 19:07 | PM.OBPRVD ---
OB - Vaginal Delivery Note Procedure Delivery date: 10/01/24 Events: Other ( demise) Induction method: AROM Delivery monitor: External FHT Route of delivery: Laceration Description: Other (small superior labia minora hemostasis obtained with 3.0 vicryl figure of eight) Delivery repair: vicryl (3.0 vicryl) Specimen: Yes (Placenta and cord) Quantitative Blood Loss (ml): 800 Anesthesia type: Epidural Disposition: Floor Complications: No immediate complications Narrative: She was admitted, abruption and demise labs drawn, she was given IV meds for analgesia. AROM clear fluid. Cervix 2cm. She had epidural placed soon after AROM. She progressed to active labor. Had minimal bleeding throughout labor. She did have decreased urine output. Repeat CBC performed and h/h unchanged at . Fluid bolus performed and still decreased output. She was soon dilated to complete in less than an hour. The pressley catheter was noted to be kinked the bulb would not deflate, once bulb air released with scissors then more urine output seen. She pushed for two contractions and delivered female , no crying or breathing or signs of life. Cord doubly clamped and cut. Placenta delivered intact with large clot, which measured 600 cc. Clot cleared from lower segment, intermittent hypotonia responded to Cytotec 1000mcg rectally and then Methergine and tone sustained. Minimal bleeding. Small laceration noted on right labia minora and hemostasis obtained with 3.0 vicryl. Baby Date of : 10/01/24 Time of : 18:41 Gestational Age by Date: 34 gender: Female Weight (pounds): 4 Weight (ounces): 5 presentation: vertex position: Left Occiput Anterior Placenta delivery description: Expressed score one minute: 0 score five minutes: 0
[2024-10-01] MEDS: OXYTOCIN 30 UNITS/NS 500 ML 30 UNITS/500 ML BAG 125 UNITS IV CONT (19:23)
[2024-10-01] MEDS: BENZOCAINE 20% AER SPR (*SP) 56 GM CAN 1 SPRAY TOPICAL (21:00)
[2024-10-01] MEDS: WITCH HAZEL 40 PADS 1 PAD TOPICAL (21:00)
[2024-10-01] MEDS: ACETAMINOPHEN 325 MG TABLET 650 MG PO (22:14)
[2024-10-01] MEDS: IBUPROFEN 600 MG TABLET PO (22:16)
[2024-10-02] VITALS (12 sets, daily range): BP systolic 105–130; BP diastolic 62–73; PULSE 82–111; RESP 16–18; TEMP 36.7–37.7; O2SAT 95–100
[2024-10-02] MEDS: BENZOCAINE 20% AER SPR (*SP) 56 GM CAN 1 SPRAY TOPICAL (05:00)
[2024-10-02] MEDS: WITCH HAZEL 40 PADS 1 PAD TOPICAL (05:00)
[2024-10-02 05:07] LABS: Hematocrit 23.5 % (37.0-47.0); Hemoglobin 7.9 g/dL (12.0-15.0)
[2024-10-02] MEDS: ACETAMINOPHEN 325 MG TABLET 650 MG PO ×2 (05:09→13:01)
[2024-10-02] MEDS: IBUPROFEN 600 MG TABLET PO ×3 (05:10→22:15)
--- NOTE | 2024-10-02 05:39 | PC.NURSE ---
Addendum entered by Latonia Connelly RN 10/02/24 05:43: 0532- RN notified Dr. Grey of H&H results from routine lab draw this morning. RN also notified MD of QBL in recovery as well as in that is totaling 1,030mL including delivery QBL. RN also notified MD of urine output per hour. MD gave orders, see MAR. Original Note: 0532- RN notified Dr. Grey of H&H results from routine lab draw this morning. RN also notified MD of QBL in recovery as well as in that is totaling 1,030mL including delivery QBL. MD gave orders, see MAR.
[2024-10-02 05:41] LABS: Hematocrit 23.7 % (37.0-47.0); Hemoglobin 7.9 g/dL (12.0-15.0); Immature Granulocyte Percent A 0.5 % (0-0.5); Lymphocytes Absolute Auto 3.06 K/mm3 (0.9-3.2); Mean Corpuscular HGB Conc 33.3 g/dl (32-36); Mean Corpuscular Hemoglobin 31.0 pg (26-34); Mean Corpuscular Volume 92.9 fl (80-100); Nucleated Red Blood Cells Absolute Auto 0.000 K/mm3 (0.0-0.012); Nucleated Red Blood Cells Perc 0.0 % (0.0-0.2); Platelet Count Result 157 k/mm3 (150-375); Red Blood Count 2.55 M/mm3 (4.2-5.4); White Blood Count 15.5 K/mm3 (4.5-10.0)
[2024-10-02] MEDS: SODIUM CHLORIDE 0.9% IV 500 ML 999 ML IV CONT (06:12)
[2024-10-02 06:23] LABS: Alanine Aminotransferase 14 U/L (6-35); Albumin Level 2.6 g/dL (3.5-5.1); Alkaline Phosphatase 513 U/L (38-126); Anion Gap 6 mmol/L (4-12); Aspartate Amino Transferase 26 U/L (14-36); Bilirubin,Total 0.4 mg/dL (0.2-1.3); Blood Urea Nitrogen 6 mg/dL (7-17); Calcium 8.4 mg/dL (8.4-10.2); Carbon Dioxide 22 mmol/L (22-30); Chloride 108 mmol/L (98-107); Estimated CRCL calculation 127 ml/min; Estimated Glomerular Filt Rate > 60; Glucose 89 mg/dL (65-110); Potassium 3.7 mmol/L (3.4-5.0); Sodium 136 mmol/L (137-145); Total Protein 5.6 g/dL (6.3-8.2)
--- NOTE | 2024-10-02 06:36 | PC.NURSE ---
0600- Report given to Guerline Knowles RN
[2024-10-02] MEDS: FUROSEMIDE INJ 40 MG/4 ML VIAL IV PUSH (06:43)
[2024-10-02] MEDS: IRON SUCROSE COMPLEX 400 MG in SODIUM CHLORIDE 0.9% IV 250 ML 108 MG IVPB (06:46)
--- NOTE | 2024-10-02 08:55 | PC.NURSE ---
Pt has eaten part of her breakfast and would like to save the rest in her room for now. Heating pad applied to abdomen for cramping. Pt's sister present in room. Asked pt if she would like her sister to make any phone calls to homes for her. Pt states her mother is coming and will probably do that. Pt wanting to nap for now. Instructed pt to call out when she is awake and we will go over some things with her. Pt verbalizes understanding.
--- NOTE | 2024-10-02 09:29 | PM.OBPNVD ---
OB - PN: Subj Subjective Date/time seen: 10/02/24 09:29 Interval history: She has ambulated without problems to restroom. Denies lightheadedness or dizziness. Lochia minimal. Mild improvement with Motrin Tylenol. Patient comments: tolerating diet OB - PN: Obj Data Labs 10/02/24 04:55 10/02/24 05:58 Labs: Laboratory Results - last 24 hr 10/01/24 10/01/24 10/01/24 12:21 12:23 12:29 WBC RBC Hgb Hct MCV MCH MCHC RDW Plt Count MPV Immature Gran % (Auto) Neut % (Auto) Lymph % (Auto) [place] % (Auto) Eos % (Auto) Baso % (Auto) Lymph # (Auto) [place] # (Auto) Eos # (Auto) Baso # (Auto) Abs Immat Gran (auto) Absolute Neuts (auto) Absolute Nucleated RBC Nucleated RBC % PT 14.0 INR 1.1 APTT 28.7 Fibrinogen 316 Sodium Potassium Chloride Carbon Dioxide Anion Gap BUN Creatinine Estim Creat Clear Calc Estimated GFR Glucose Hemoglobin A1c Calcium Total Bilirubin AST ALT Alkaline Phosphatase Total Protein Albumin TSH 0.610 Free T4 Urine Opiates Screen Negative Urine Methadone Screen Negative Ur Barbiturates Screen Negative Ur Phencyclidine Scrn Negative Ur Amphetamine Screen Negative U Benzodiazepines Scrn Negative Urine Cocaine Screen Negative U Cannabinoids Screen Positive A Syphilis IgG/IgM Ab Hep Bs Antigen Negative HIV 1&2 Ab/P24 Ag 4thGn Negative Rubella IgG Antibody 7.5 L Blood Type O Positive Antibody Screen Negative KB Hemoglobin 10/01/24 10/01/24 10/01/24 12:34 12:40 12:50 WBC 16.7 H RBC 3.70 L Hgb 11.4 L Hct 33.9 L MCV 91.6 MCH 30.8 MCHC 33.6 RDW 12.3 Plt Count 226 MPV 9.0 Immature Gran % (Auto) 0.7 H Neut % (Auto) 80.6 H Lymph % (Auto) 12.9 L [place] % (Auto) 5.3 Eos % (Auto) 0.3 Baso % (Auto) 0.2 Lymph # (Auto) 2.16 [place] # (Auto) 0.9 H Eos # (Auto) 0.1 Baso # (Auto) 0.0 Abs Immat Gran (auto) 0.12 H Absolute Neuts (auto) 13.5 H Absolute Nucleated RBC 0.000 Nucleated RBC % 0.0 PT INR APTT Fibrinogen Sodium 134 L Potassium 3.4 Chloride 105 Carbon Dioxide 19 L Anion Gap 10 BUN 9 Creatinine 0.57 L Estim Creat Clear Calc Not Reportable Estimated GFR > 60 Glucose 168 H Hemoglobin A1c 5.2 Calcium 9.1 Total Bilirubin 0.4 AST 25 ALT 18 Alkaline Phosphatase 716 H Total Protein 7.1 Albumin 3.5 TSH Free T4 0.94 Urine Opiates Screen Urine Methadone Screen Ur Barbiturates Screen Ur Phencyclidine Scrn Ur Amphetamine Screen U Benzodiazepines Scrn Urine Cocaine Screen U Cannabinoids Screen Syphilis IgG/IgM Ab Non-reactive Hep Bs Antigen HIV 1&2 Ab/P24 Ag 4thGn Rubella IgG Antibody 7.6 L Blood Type Antibody Screen KB Hemoglobin Negative 10/01/24 10/02/24 10/02/24 16:36 04:55 04:55 WBC 16.6 H 15.5 H RBC 3.72 L 2.55 L Hgb 11.5 L 7.9 L D 7.9 L Hct 34.6 L 23.5 L MCV 93.0 MCH 30.9 MCHC 33.2 RDW 12.5 Plt Count 187 MPV 9.0 Immature Gran % (Auto) Neut % (Auto) Lymph % (Auto) [place] % (Auto) Eos % (Auto) Baso % (Auto) Lymph # (Auto) [place] # (Auto) Eos # (Auto) Baso # (Auto) Abs Immat Gran (auto) Absolute Neuts (auto) Absolute Nucleated RBC Nucleated RBC % PT INR APTT Fibrinogen Sodium Potassium Chloride Carbon Dioxide Anion Gap BUN Creatinine Estim Creat Clear Calc Estimated GFR Glucose Hemoglobin A1c Calcium Total Bilirubin AST ALT Alkaline Phosphatase Total Protein Albumin TSH Free T4 Urine Opiates Screen Urine Methadone Screen Ur Barbiturates Screen Ur Phencyclidine Scrn Ur Amphetamine Screen U Benzodiazepines Scrn Urine Cocaine Screen U Cannabinoids Screen Syphilis IgG/IgM Ab Hep Bs Antigen HIV 1&2 Ab/P24 Ag 4thGn Rubella IgG Antibody Blood Type Antibody Screen KB Hemoglobin 10/02/24 10/02/24 04:55 05:58 WBC RBC Hgb Hct 23.7 L MCV 92.9 MCH 31.0 MCHC 33.3 RDW 12.5 Plt Count 157 MPV 9.6 Immature Gran % (Auto) 0.5 Neut % (Auto) 72.1 Lymph % (Auto) 19.7 [place] % (Auto) 7.1 Eos % (Auto) 0.3 Baso % (Auto) 0.3 Lymph # (Auto) 3.06 [place] # (Auto) 1.1 H Eos # (Auto) 0.0 Baso # (Auto) 0.0 Abs Immat Gran (auto) 0.07 H Absolute Neuts (auto) 11.2 H Absolute Nucleated RBC 0.000 Nucleated RBC % 0.0 PT INR APTT Fibrinogen Sodium 136 L Potassium 3.7 Chloride 108 H Carbon Dioxide 22 Anion Gap 6 BUN 6 L Creatinine 0.65 L Estim Creat Clear Calc 127 Estimated GFR > 60 Glucose 89 Hemoglobin A1c Calcium 8.4 Total Bilirubin 0.4 AST 26 ALT 14 Alkaline Phosphatase 513 H Total Protein 5.6 L Albumin 2.6 L TSH Free T4 Urine Opiates Screen Urine Methadone Screen Ur Barbiturates Screen Ur Phencyclidine Scrn Ur Amphetamine Screen U Benzodiazepines Scrn Urine Cocaine Screen U Cannabinoids Screen Syphilis IgG/IgM Ab Hep Bs Antigen HIV 1&2 Ab/P24 Ag 4thGn Rubella IgG Antibody Blood Type Antibody Screen KB Hemoglobin Imaging Radiologist's impression: Impressions Obstetrics Ultrasound 10/01/24 13:05 IMPRESSION: Grossly enlarged and heterogeneous placenta without cardiac activity on the submitted static or cine images. OB - PN A/P Assessment and Plan (1) (vaginal after ): Code(s): O34.219 - Maternal care for unspecified type scar from previous delivery Status: Acute Assessment and Plan: Routine care. (2) Placental abruption: Code(s): O45.90 - Premature separation of placenta, unspecified, unspecified trimester Status: Acute Assessment and Plan: Etiology of demise (3) Severe anemia: Code(s): D64.9 - Anemia, unspecified Status: Acute Assessment and Plan: Asymptomatic. No hypovolemic symptoms. No signs of active bleeding. Urine output good. Iron infusion today. Will recheck cbc at 1600, if less then will transfuse. Plan day: 1 Comments: Patient doing well. Time Spent With Patient Time: Total time spent is greater than 50% in coordination of care (as documented) at patient's floor/unit and/or counseling patient: Exam Const: General: no acute distress Resp: Effort & Inspection: normal respiratory effort GI: Inspection: normal to inspection Other: fundus firm 4umb, nontender, Extrem: General: normal to inspection Psych: Appearance: grossly normal Other: Abd: fundus firm below umbilicus, nontender Perineum: healing Ext: nontender
--- NOTE | 2024-10-02 09:30 | PC.NURSE ---
Dr. Grey in to see and assess pt. Informed pt has voided 1250 so far this shift. Pt has been up to bathroom with assist and has steady gait, no light headedness or dizziness. Dr. Grey discussed with pt that if she should start experiencing any light headedness or dizziness while up she will want to give her a blood transfusion.
--- NOTE | 2024-10-02 09:32 | PC.NURSE ---
Dr. Grey informed pt rating her cramping a 5 even after using a heating pad, Motrin and Tylenol. ordered Pateros.
[2024-10-02] MEDS: HYDROcodone/acetaminophen (*CRX) 5-325 MG TABLET 1 TAB PO ×2 (09:57→22:15)
--- NOTE | 2024-10-02 10:45 | PC.NURSE ---
Dr. Grey called to add Miralax to pt's orders, but informed pt just had a small soft stool. Miralax cancelled, but wants Colace BID due to iron supplementation.
[2024-10-02] MEDS: DOCUSATE SODIUM 100 MG CAPSULE PO ×2 (10:58→22:15)
--- NOTE | 2024-10-02 15:38 | PC.NURSE ---
Dr. Grey informed that both IV sites now have a small amount of blood under the dressing. Her left AC IV had some earlier this morning and I changed it, but just thought it was from the BP cuff also being on that arm. Now her Rt forearm IV site also has some blood under them. Vaginal bleeding remains small rubra. Fundus firm at U. Order received to add PT, PTT ,and Fibrinogen to CBC order.
[2024-10-02 16:25] LABS: Hematocrit 24.2 % (37.0-47.0); Hemoglobin 8.1 g/dL (12.0-15.0); Mean Corpuscular HGB Conc 33.5 g/dl (32-36); Mean Corpuscular Hemoglobin 30.9 pg (26-34); Mean Corpuscular Volume 92.4 fl (80-100); Platelet Count Result 176 k/mm3 (150-375); Red Blood Count 2.62 M/mm3 (4.2-5.4); White Blood Count 12.2 K/mm3 (4.5-10.0)
[2024-10-02 16:37] LABS: INR 1.0; Prothrombin Time 13.4 Seconds (11.1-14.7)
[2024-10-02 16:38] LABS: Fibrinogen 347 mg/dl (215-510); Partial Thromboplastin Time 32.8 Seconds (22.3-36.8)
--- NOTE | 2024-10-02 17:02 | PC.NURSE ---
Dr. rGey informed of lab results. Pt has been up in room today including standing at sink and using curling iron to fix hair. Pt's family took pt outside in the wheelchair for a few minutes. Smell of marijuana noted upon return to room.
[2024-10-02] MEDS: ZOLPIDEM TARTRATE (*CRX) 5 MG TABLET PO (22:16)
[2024-10-03 03:47] VITALS: BP 109/75; PULSE 82; TEMP 37
[2024-10-03] MEDS: IBUPROFEN 600 MG TABLET PO (04:57)
[2024-10-03] MEDS: ACETAMINOPHEN 325 MG TABLET 650 MG PO (04:57)
[2024-10-03 08:05] VITALS: BP 103/57; PULSE 92; TEMP 37.1
[2024-10-03] MEDS: DOCUSATE SODIUM 100 MG CAPSULE PO (08:59)
--- NOTE | 2024-10-03 09:39 | PC.NURSE ---
Dr. Grey at to see pt., POC discussed with pt. at this time. Discharge plan reviewed with pt. per Dr. Grey. F/U appt. with Dr. Grey planned for 2 weeks.
--- NOTE | 2024-10-03 13:07 | PC.NURSE ---
Kristian from [facility] here to transport body of Adelaida (baby girl [facility]) to home.
[2024-10-03 16:33] LABS: CMV IgG Antibody. 6.70 U/mL; CMV IgM Antibody. <30.00 AU/mL; Toxoplasma IgM Antibody. <8.00 AU/mL
[2024-10-03 16:33] LABS: Toxoplasma IgG Antibody. <7.20 IU/mL
[2024-10-03 20:14] LABS: Lupus dRVVT Screen 36 sec (< OR = 45); PTT-LA Screen 38 sec (< OR = 40)
[2024-10-05 07:29] LABS: Anti Cardio Antibody IgM <2.0 MPL-U/mL; Anti Cardiolipin Antibody IgA <2.0 APL-U/mL; Anti Cardiolipin Antibody IgG 3.1 GPL-U/mL
--- NOTE | 2024-10-26 08:34 | PM.OBDSVD ---
DS: Admitting Diagnosis Discharge Date 10/03/24 Admitting Diagnosis 1. demise 2. Placental abruption DS: Discharge Diagnosis Discharge Diagnosis (1) demise: Status: Acute (2) (vaginal after ): Code(s): O34.219 - Maternal care for unspecified type scar from previous delivery Status: Acute (3) Placental abruption: Code(s): O45.90 - Premature separation of placenta, unspecified, unspecified trimester Status: Acute OB - DS: Summary Hospital Course Hospital Course: patient presented to Labor and delivery via ambulance due to abdominal pain. On admission to Labor and delivery no heart tones were heard. Stat ultrasound confirmed demise. And findings consistent with placental abruption. A 2nd ultrasound was performed by myself and confirmed no heart tones. abruption labs and demise labs were performed. Patient was given her options and opted for attempted vaginal delivery. she was marimar. The cerclage was removed. She had assisted rupture of membranes clear fluid. She progressed to active labor. She had an epidural placed soon after assisted rupture membranes. She had a vaginal delivery. she did well. She did have anemia of 7.9 in 23.7 she was asymptomatic she was given an iron infusion the hemoglobin increased to 8.1 and 24.2. She did not have any hypovolemic symptoms. On day 2 she was discharged to home. Instructed to take iron pills and Motrin or Tylenol for pain. Instructed on bleeding precautions and follow up instructions. She did not want to follow-up with her primary OB provider and was given information to follow-up with me. She was offered counseling services for demise inpatient. OB Procedures : Ultrasound OB Procedures Intrapartum: Spontaneous Vag Delivery OB Procedures: : None Peripartum Data Infant Delivery Method: Natural Vaginal ( Vaginal after ) Laceration Description: Labial and Other (small superior labia minora hemostasis obtained with 3.0 vicryl figure of eight) complications: none Status at Discharge Functional status at discharge: independent ambulation Time Spent with Patient Time attestation: Total time spent providing and/or coordinating discharge services: Exam Const: General: cooperative Orientation/consciousness: oriented to person, oriented to place and oriented to time HENMT: Face/Nose/Sinus: Normal external nose present Eyes: General: appearance normal, both eyes and all related structures Resp: Effort & Inspection: normal respiratory effort GI: Inspection: normal to inspection Skin: General skin exam: normal color Neuro: General: oriented to person, oriented to place and oriented to time Extrem: General: normal to inspection and no calf tenderness Psych: Appearance: grossly normal DS: Data Data Completed and Pending Completed studies during hospitalization: Pending at discharge 10/01/24 19:00 Surgical [PTH] Routine Discharge Plan Discharge Attending physician on discharge: Mike Grey Consulting providers: Silvano Ya Discharging Clinician: Mike Grey Anticipated Discharge Date/Time: 10/03/24 09:53 Patient Disposition: Home Activity: may shower, no straining, no driving and pelvic rest Diet: regular Discharge Instructions: Follow-Up:? ? Call your Provider's office for an appointment to be seen in: ? Scheduled to be seen 10/18/24 at 8:[address] Grey's office, hospital entrance [address] ? * [facility] offers a and Infant Loss Support group which meets the Thursday of every month from 6:30pm-8:30pm.? * If consent was given, you will be contacted by the Share Coordinator to check in on you.? * If you have questions regarding the grieving process or would like more resources or support, you can call the?Share Coordinator at [phone] or via email at [email or web address] *The staff at [facility] wishes to extend our deepest sympathy during this very difficult time.? ? ? EPISIOTOMY/PERINEAL CARE:? ? * Until bleeding stops, use your devorah bottle after urinating? * Change your pad frequently throughout the day? * You may take sitz baths several times a day (fill your bathtub with warm water and soak for 20 minutes.)? Do NOT bathe in the water? * No tub baths until seen by your physician - You may shower? ? BLEEDING:? * Each individual will experience vaginal bleeding, but it will vary with each situation and individual woman.? * Vaginal bleeding will go thru cycles-from bright red, to pinkish to a white, creamy discharge.? This is considered normal.? You may also experience a brownish discharge which is also normal.? ? DIET AND NUTRITION:? * Eat at least 3 regular, well-balanced meals per day: include all 4 food groups daily.?? * You may prefer 6 small meals.? * Drink 6-8 glasses of water or non-caffeinated beverages per day.? * Loss of appetite is common with loss.? We encourage you to try to eat; this will help with both your physical and emotional health.? ? ACTIVITY:? ? * Rest as much as possible during the day.? * Do not exercise or lift anything heavier than 10 pounds (such as laundry or other children.)? * Avoid stairs or driving as much as possible, especially if you are taking pain medication.? * Do not put anything into the vagina.? No douching, tampons, or sexual activity until seen and released by your physician.? * Listen to your body, and do not do what is uncomfortable or painful.? ? ? EMOTIONAL HEALTH:? ? * This is a very difficult and sad time for you and your family, friends, and other children.? It may be helpful to refer to the booklets on loss that you may have received.? * It is okay to be sad and to cry.? Denial, anger, and guilt are also normal stages that you and your family may go thru during this time.? Each person reaches these stages at their own pace.? * Keep the lines of communication open between family and friends and ask for help if needed.? ? ? NOTIFY PHYSICIAN IF YOU HAVE ANY QUESTIONS OR IF ANY OF THE FOLLOWING SYMPTOMS OCCUR:? ? * If you feel any desire to harm yourself or others, contact your physician immediately or go to the nearest emergency room.? *If your episiotomy or incision becomes red, swollen, or more painful than what you have experienced in the hospital.? * If your vaginal bleeding becomes foul smelling.? * If your vaginal bleeding becomes heavier than a period or if your bleeding changes from pink to bright red.? However, you may pass an occasional walnut-sized clot once or twice for the first week .? * If you experience a sharp, shooting pain in you calves.? * If you discover a hard, reddened area on your breast or if you experience flu-like symptoms.? * If you develop a temperature of 100.4 or greater.? * If you are unable to eat or sleep and take care of activities that sustain life.? Patient Language: Bulgarian Stand Alone Forms: General Discharge Information Follow-up/Referrals: Mike Grey MD [Physician] - 10/18/24 8:15 am Discharge Medications: New ferrous sulfate 325 mg (65 mg iron) tablet 325 mg PO TID Qty: 90 0RF docusate sodium [Colace] 100 mg capsule 100 mg PO DAILY Qty: 30 0RF Date of admission: 10/01/24 11:46 Primary Care Provider: PHYSICIAN,[employer]PER[employer]OR Admitting Provider: Mike Grey Attending physician on admission: Mike Grey Condition: Stable
== END 2024-10-03 11:40 | disposition home or self-care (01) | DRG 560 ==
PROVIDERS: Admitting Provider Obstetrics & Gynecology; Visit Provider Obstetrics & Gynecology
DX: O36.4XX0 Maternal care for intrauterine death, not applicable or unspecified (principal); O45.93 Premature separation of placenta, unspecified, third trimester; Z37.0 Single live birth; Z3A.34 34 weeks gestation of pregnancy; O34.33 Maternal care for cervical incompetence, third trimester; O34.211 Maternal care for low transverse scar from previous cesarean delivery; O70.0 First degree perineal laceration during delivery
CPT/HCPCS: 36415; 76815; 80053; 80307; 83036; 84439; 84443; 85014; 85018; 85025; 85027; 85384; 85460; 85610; 85613; 85730; 86146; 86147; 86593; 86644; 86645; 86695; 86696; 86703; 86747; 86762; 86777; 86778; 86850; 86900; 86901; 87340; 88307; A9270; G0432; J1756; J1938; J2210; J2371; J2590; J2795; J3010; J7030; J7040; J7050; J7120

== ENCOUNTER 2024-10-18 09:23 | Outpatient (CLI) | payer OTHER, SELFPAY ==
--- OUTSIDE RECORDS SUMMARY | 2024-10-18 09:26 | XMS_ITS | Encounter Summary ---
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 Pt can be reached at [phone]. 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 [address] Donny Mcadams MD [address] [facility] [address] [place] [address] 10/26/2024 10:30 AM CDT Appointment [facility] & Care [address] [place] [address] 10/26/2024 11:15 AM CDT Appointment [facility] Maternal & Care [address] [place] [address] 11/02/2024 10:30 AM CDT Appointment [facility] Maternal & Care [address] [place] [address] 11/02/2024 11:15 AM CDT Appointment [facility] & [facility] [address] [place] [address] 11/09/2024 9:00 AM CDT Appointment [facility] Maternal & Care [address] [place] [address] 11/09/2024 9:45 AM CDT Appointment [facility] Maternal & Care [address] [place] [address] 11/16/2024 9:00 AM CDT Appointment [facility] Maternal & Care [address] [place] [address] 11/16/2024 9:45 AM CDT Appointment [facility] [address] [place] [address] documented as of this encounter Visit Diagnoses Not on filedocumented in this encounter Care Teams Claims Manager Relationship Specialty Start Date End Date Ethan Petty PA-C [address] [facility] [address] [place] [phone] PCP - General 08/02/20 documented as of this encounter
--- OUTSIDE RECORDS SUMMARY | 2024-10-18 09:26 | XMS_ITS | Clinical Summary ---
Author Organization [facility] [employer] Address [address] [address] Care Team Providers Care Lumber Buyer Name Role Phone Ethan Petty PA-C Primary Care Provider Source Comments [facility],non-owned Affiliates and Associated Physician Practices is amultiple site organization consisting of ambulatory clinics and hospital sitesin [place], [place], [place] and [place]. This disclosure is being madepursuant to the Care Everywhere program and may not contain all information available regarding this patient. Last updated 17.[facility] [employer] Allergies No known active allergies Medications * [...] success rate is stated at 60-80%. The [facility] Network calculator for this patient [...] later in for TOLAC planning purposes at [place]. Obesity affecting 08/10/2024 Overview (08/10/2024): Obesity in [...] Encounters Date Type Department Care Team Description 10/05/2024 Telephone [facility] [address] [place] [address] Padmini Elmore Appointment 09/07/2024 9:00 AM CDT - 09/07/2024 11:59 PM CDT Hospital Encounter [facility] [address] [place] [address] Ronen Milan MD Wendel, Michael, MD CIVIL STRUCTURAL DESIGNER Discharge Disposition: Home or Self Care 08/10/2024 8:14 AM CDT - 08/10/2024 11:59 PM CDT Hospital Encounter [facility] [address] [place] [address] Donny Mcadams MD Discharge Disposition: Home or Self Care 08/10/2024 8:13 AM CDT Hospital Encounter [facility] [address] [place] [address] Etienne Skinner MD Wendel, Michael, MD Discharge [...] on file Legal Sex Female 5:39 AM INTERNAL SALES ENGINEER Gender Identity Not on file Sexual Orientation Not on file Last Filed Vital Signs Vital Sign Reading Time Taken Comments Blood Pressure 115/69 08/10/2024 9:27 AM CDT Pulse 83 08/10/2024 9:27 AM CDT Temperature 36.7 C (98.1 F) 03/18/2021 10:58 AM INTERNAL SALES ENGINEER Respiratory Rate 17 03/03/2019 4:00 PM INTERNAL SALES ENGINEER Oxygen Saturation 98% 03/18/2021 10:58 AM INTERNAL SALES ENGINEER Inhaled Oxygen Concentration - - Weight 109.3 kg (241 lb) 08/10/2024 9:27 AM CDT Height 157.5 cm (5' 2) 08/10/2024 9:27 AM CDT Body Mass Index 44.08 08/10/2024 9:27 AM CDT Plan of Treatment Upcoming Encounters Date Type Department Care Team (Late st Contact Info) Description 10/19/2024 10:30 AM CDT Hospital Encounter [facility] [address] [place] [address] Donny Mcadams MD [address] [facility] [address] [place] [address] 10/19/2024 11:15 AM CDT Hospital Encounter [facility] [address] [place] [address] Donny Mcadams MD [address] [facility] [address] [place] [address] 10/26/2024 10:30 AM CDT Appointment [facility] [address] [place] [address] 10/26/2024 11:15 AM CDT Appointment [facility] Maternal & Care [address] [place] [address] 11/02/2024 10:30 AM CDT Appointment [facility] [address] [place] [address] 11/02/2024 11:15 AM CDT Appointment [facility] Maternal & Care [address] [place] [address] 11/09/2024 9:00 AM CDT Appointment [facility] Maternal & Care [address] [place] [address] 11/09/2024 9:45 AM CDT Appointment [facility] [address] [place] [address] 11/16/2024 9:00 AM CDT Appointment [facility] [address] [place] [address] 11/16/2024 9:45 AM CDT Appointment [facility] Care [address] [place] [address] Health Maintenance Due Date Last Done Comments HIV SCREENING 12/06/2010 HEPATITIS C SCREENING 12/02/2013 DTAP/TDAP/TD VACCINES (1 - Tdap) 12/06/2014 HEPATITIS B VACCINE (1 of 3 - 19+ 3-dose series) 12/06/2014 PAP SMEAR 07/28/2021 07/28/2018 (Done Outside Per Patient) HPV VACCINE (1 - 3-dose SCDM series) 12/06/2022 COVID-19 VACCINE (1 - 2023-2 5 season) [...] AM CDT Cervical insufficiency in , antepartum ([facility]) Previous delivery, antepartum condition or complication ([facility]) Encounter for maternal care for suspected poor growth in [place] in second trimester ([facility]) Supervision of high risk in third trimester ([facility]) growth restriction antepartum ([facility]) History of cerclage, currently ([facility]) 30 weeks gestation of ([facility]) SONOGRAM - COMPLETE Routine 08/10/2024 8:43 AM CDT 27 weeks gestation of (HCC) History of cerclage, currently ([facility]) Supervision of high risk in third trimester ([facility]) growth restriction antepartum ([facility]) CULTURE STREP B STAT 11/10/2018 4:37 PM CDT Short cervix affecting from Last 3 Months or Most Recently Relevant to Health Maintenance Results * SONOGRAM - COMPLETE (09/07/2024 9:19 AM CDT) Only the most recent of2 resultswithin the time period is included. Linked Results Indication ======== IUGR on outside ultrasound, Current Cerclage, History of SGA History ====== OB History 5. Para 1 [id number] 1. miscarriage 2016. Details: 1st trimester, no [...] 3 lb 4 oz EFW by Hadlock ([id number]-FL) appropriate Growth Overview Exam date GA BPD [...] view. RVOT view. LVOT view. 3-vessel view. 2-odmref-zajjelc view. Situs. Aortic arch view. Bicaval view. [...] weeks to reassess growth Coding ====== Procedures [id number]: US Preg Uterus Follow Up [facility] collegefeed PACS Anatomical Region Laterality Modality Other 09/07/2024 9:19 AM CDT Donny Norton MD [facility] ORDERABLES Edited Resul t - Final * CULTURE STREP B (11/10/2018 4:37 PM CDT) Culture Strep B Negative for beta-hemolytic Streptococcus Group B AMTEUSZ 11/13/2018 6:18 PM CDT [facility] MICROBIOLOGY Microbiology MISCELLANEOUS SAMPLES / Unknown Collection / Unknown 11/10/2018 4:37 PM CDT 11/10/2018 4:52 PM CDT Mary Jones MD LAB - MICROBIOLOGY ORDERABLE S Final Result [facility] MICROBIOLOGY [address] [place] [address], [facility] [phone] from Last 3 Months or Most Recently Relevant to Health Maintenance Insurance [facility] SELF PAY NO INSURANCE Member Subscriber Plan / Payer (Ef fective for All Dates) Name:Bharath Beauchamp Member ID:Not on file Relation to Subscriber:Self Name:NITOBHARATH Starnge Subscriber ID:Not on file Payer ID:Not on file Group ID:Not on file Type:Self Pay Address: [facility] Advance Directives * Full Code (Latest Code Status on File) Date Activated Date Inactivated Comments 11/11/2018 12:46 AM 11/12/2018 8:02 PM * Full Code Date Activated Date Inactivated Comments 11/10/2018 1:53 PM 11/11/2018 12:46 AM Care Teams Lumber Buyer Relationship Specialty Start Date End Date Ethan Petty PA-C [address] [phone] PCP - General 08/02/20
--- OUTSIDE RECORDS SUMMARY | 2024-10-18 09:26 | XMS_ITS | Clinical Summary ---
Author Organization [place] [id number] [facility] Address [address] [place] [address] Care Team Providers Care Sales Director Name Role Phone No, Physician Primary Care Provider [phone] Allergies No known active allergies Medications acyclovir (ZOVIRAX) 400 mg tablet Take 1 tablet (400 mg total) by mouth 2 (two) times a day Active ferrous sulfate 325 mg (65 mg of elemental iron) tablet Active 90-ebba-eywnor 6-dha 30 mg iron-1mg -200 mg capsule [...] on file Legal Sex Female 11:34 AM CODING SPECIALIST HOME HEALTH Gender Identity Not on file Sexual Orientation Not on file Obstetrics History Last Filed Vital Signs Vital Sign Reading Time Taken Comments Blood Pressure 116/84 04/27/2024 2:15 PM CODING SPECIALIST HOME HEALTH Pulse 75 04/27/2024 2:15 PM CODING SPECIALIST HOME HEALTH Temperature 36.4 C (97.5 F) 04/27/2024 10:55 AM CODING SPECIALIST HOME HEALTH Respiratory Rate 16 04/27/2024 2:15 PM CODING SPECIALIST HOME HEALTH Oxygen Saturation 100% 04/27/2024 2:15 PM CODING SPECIALIST HOME HEALTH Inhaled Oxygen Concentration - - Weight 99.9 kg (220 lb 3.2 oz) 04/27/2024 7:18 A M CODING SPECIALIST HOME HEALTH Height 154.9 cm (5' 1) 04/27/2024 7:18 AM CODING SPECIALIST HOME HEALTH Body Mass Index 41.61 04/27/2024 7:18 AM CODING SPECIALIST HOME HEALTH Plan of Treatment Health Maintenance Due Date Last Done Comments Cervical Cancer Screening 1995 Depression Screening 1995 Hepatitis C Screening 1995 DTaP/Tdap/Td Vaccine (1 - Tdap) 12/06/2006 Varicella Vaccines (1 of 2 - 13+ 2-dose series) 12/06/2008 Hepatitis B Screening 12/06/2013 Regular Well Visit/Exam 18-64 12/06/2013 Influenza Vaccine (#1) 2024 HPV Vaccines Aged Out No longer eligi ble based on patient's age to complete this topic Pneumococcal vaccine <65 Aged Out No longer eligible based on patient's age to complete this topic Insurance [facility] Advance Directives For more information, please contact: [phone] * Full Code (Latest Code Status on File) Date Activated Date Inactivated Comments 04/27/2024 10:07 AM 04/27/2024 9:25 PM Care Teams Sales Director Relationship Specialty Start Date End Date No, Physician PCP - General 07/14/24
--- OUTSIDE RECORDS SUMMARY | 2024-10-18 09:26 | XMS_ITS | Encounter Summary ---
Author Organization [facility] Address [address] [facility] [place] [address] Care Team Providers Care Newspaper Journalist Name Role Phone Ethan Petty PA-C Primary Care Provider Reason for Visit * Reason Onset Date Comments MEDICATION REFILL 08/01/2022 Encounter Details Date Type Department Care Team (Late st Contact Info) Description 08/01/2022 Refill [facility] Family [facility] Community Medicine [address] [place], [place] [id number] Ethan Petty PA-C [address] [place] [phone] MEDICATION REFILL Social History Tobacco Use [...] Description 10/19/2024 10:30 AM CDT Hospital Encounter [facility] Maternal & Care [address] [place] [address] Donny Mcadams MD [address] [facility] [address] [place] [address] 10/19/2024 11:15 AM CDT Hospital Encounter [facility] M[facility] & Care [address] [place] [address] Donny Mcadams MD [address] [facility] [address] [place] [address] 10/26/2024 10:30 AM CDT Appointment [facility] Maternal & Care [address] [place] [address] 10/26/2024 11:15 AM CDT Appointment [facility] Maternal & Care [address] [place] [address] 11/02/2024 10:30 AM CDT Appointment [facility] M[facility] & Care [address] [place] [address] 11/02/2024 11:15 AM CDT Appointment [facility] Maternal & Care [address] [place] [address] 11/09/2024 9:00 AM CDT Appointment [facility] Maternal & Care [address] [place] [address] 11/09/2024 9:45 AM CDT Appointment [facility] Maternal & Care [address] [place] [address] 11/16/2024 9:00 AM CDT Appointment [facility] Maternal & Care [address] [place] [address] 11/16/2024 9:45 AM CDT Appointment [facility] Maternal & Care [address] [place] [address] documented as of this encounter Visit Diagnoses Diagnosis H/O cold sores Personal history of other infectious and parasitic disease Cervical insufficiency in , antepartum (HCC)- Primary Other congenital or acquired abnormality of cervix, antepartum condition or complication Previous delivery, antepartum condition or complication (HCC) Previous delivery, antepartum condition or complication Obesity affecting in third trimester, unspecified obesity type ([facility]) Encounter for maternal care for suspected poor growth in [place] in second trimester ([facility]) 36 weeks gestation of ([facility]) state, incidental Cervical insufficiency in , antepartum (HCC)- Primary Other congenital or acquired abnormality of cervix, antepartum condition or complication Previous delivery, antepartum condition or complication (HCC) Previous delivery, antepartum condition or complication Obesity affecting in third trimester, unspecified obesity type ([facility]) Encounter for maternal care for suspected poor growth in [place] in second trimester ([facility]) 36 weeks gestation of ([facility]) state, incidental documented in this encounter Care Teams Newspaper Journalist Relationship Specialty Start Date End Date Ethan Petty PA-C [address] [phone] PCP - General 08/02/20 documented as of this encounter
--- OUTSIDE RECORDS SUMMARY | 2024-10-18 09:26 | XMS_ITS | Referral Summary ---
Author Organization [place] [id number] [facility] Address [address] [place] [address] Care Team Providers Care Release Of Information Clerk Name Role Phone No, Physician Primary Care Provider [phone] Allergies No known active allergies Medications acyclovir (ZOVIRAX) 400 mg tablet Take 1 tablet (400 mg total) by mouth 2 (two) times a day Active ferrous sulfate 325 mg (65 mg of elemental iron) tablet Active 93-hoel-otuhpr 6-dha 30 mg iron-1mg -200 mg capsule [...] on file Legal Sex Female 11:34 AM SCHOOL SUPERINTENDENT Gender Identity Not on file Sexual Orientation Not on file Last Filed Vital Signs Vital Sign Reading Time Taken Comments Blood Pressure 116/84 04/27/2024 2:15 PM SCHOOL SUPERINTENDENT Pulse 75 04/27/2024 2:15 PM SCHOOL SUPERINTENDENT Temperature 36.4 C (97.5 F) 04/27/2024 10:55 AM SCHOOL SUPERINTENDENT Respiratory Rate 16 04/27/2024 2:15 PM SCHOOL SUPERINTENDENT Oxygen Saturation 100% 04/27/2024 2:15 PM SCHOOL SUPERINTENDENT Inhaled Oxygen Concentration - - Weight 99.9 kg (220 lb 3.2 oz) 04/27/2024 7:18 A M SCHOOL SUPERINTENDENT Height 154.9 cm (5' 1) 04/27/2024 7:18 AM SCHOOL SUPERINTENDENT Body Mass Index 41.61 04/27/2024 7:18 AM SCHOOL SUPERINTENDENT Plan of Treatment Not on file Insurance [facility] Advance Directives For more information, please contact: [phone] * Full Code (Latest Code Status on File) Date Activated Date Inactivated Comments 04/27/2024 10:07 AM 04/27/2024 9:25 PM Care Teams Release Of Information Clerk Relationship Specialty Start Date End Date No, Physician PCP - General 07/14/24
--- NOTE | 2024-10-18 09:35 | ECG_ITS ---
Test Date: 2024-10-18 09:58:09 Measurements Intervals [place] Rate: 59 P: -26 SC: 157 QRS: 30 QRSD: 83 T: 19 QT: 397 QTc: 394 Interpretive Statements SINUS BRADYCARDIA No previous ECG available for comparison Electronically Signed On 10-18-2024 16:59:07 CDT by Anne Valadez M.D.
[2024-10-18 09:45] LABS: Hematocrit 32.0 % (37.0-47.0); Hemoglobin 9.9 g/dL (12.0-15.0); Mean Corpuscular HGB Conc 30.9 g/dl (32-36); Mean Corpuscular Hemoglobin 30.8 pg (26-34); Mean Corpuscular Volume 99.7 fl (80-100); Platelet Count Result 327 k/mm3 (150-375); Red Blood Count 3.21 M/mm3 (4.2-5.4); White Blood Count 6.2 K/mm3 (4.5-10.0)
== END 2024-10-18 09:24 | disposition home or self-care (01) ==
LOC: ANHLAB 09:24
PROVIDERS: PCP Pediatrics; Visit Provider Obstetrics & Gynecology
DX: R94.31 Abnormal electrocardiogram [ECG] [EKG] (principal); D64.9 Anemia, unspecified; R06.02 Shortness of breath
CPT/HCPCS: 36415; 85027; 93005